=== PATIENT | male | born 1955 | race Caucasian/White ===

== ENCOUNTER 2020-04-12 12:01 | Emergency (ER) | payer OTHER, MEDICARE, SELFPAY ==
[2020-04-12 12:09] VITALS: BP 158/123; PULSE 98; RESP 16; TEMP 36.3; O2SAT 93; BMI 27.2
[2020-04-12 12:12] VITALS: BP 145/82; PULSE 65; RESP 14; TEMP 36.6; O2SAT 94
[2020-04-12] MEDS: lidocaine 1% INJ 20 mL INJECTION (12:29)
--- NOTE | 2020-04-12 13:21 | ED_ITS ---
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 He reports cut his left thumb with a Lisa. Exposure to raw meat. Onset (ago): hour(s) (1-2) Place: home Patient tetanus UTD: Yes Context: accidental Associated symptoms: Reports no associated symptoms; Denies chills, fever(s), nausea or vomiting Treatments prior to arrival: bandage Review of Systems General: Reports: 10 or more systems reviewed and unremarkable except in HPI and below Const: Denies: fever(s), chills or diaphoresis Eyes: Denies: blurry vision or eye redness ENMT: Denies: throat pain, dental pain or disequilibrium Card: Denies: chest pain, palpitations or irregular heart rhythm Resp: Denies: dyspnea, productive cough, non-productive cough or wheezing GI: Denies: abdominal pain, nausea or vomiting : Denies: dysuria Musc: Denies: back pain Skin/Breast: Reports: skin tenderness and other (laceration); Denies: rash or pruritus Neuro: Denies: headache(s), weakness in extremities or behavioral changes Psych: Denies: anxiety or depression Jon/Lymph: Denies: easy bruising PFSH ED PFSH: Medical History ASHD (arteriosclerotic heart disease) Atrial fibrillation Diabetes 1.5, managed as type 2 GERD (gastroesophageal reflux disease) HTN (hypertension) Hyperlipidemia COREY (obstructive sleep apnea) Family History Mother Diabetes Hypertension Mother CAD (coronary artery disease) Father CAD (coronary artery disease) Social History Smoking and tobacco status: former smoker Alcohol intake: current Alcohol type: wine Household members: spouse Marital status: Physical Exam Const: COMMON NORMALS: no acute distress, patient oriented x3, healthy appearing and alert GENERAL APPEARANCE: cooperative, comfortable and well hydrated HENMT: COMMON NORMALS: normocephalic, Normal external nose present and moist oral mucous membranes HEAD & SCALP: normocephalic NOSE: Normal external nose present Eye: COMMON NORMALS: Equal, round and reactive pupils present and EOMs intact bilaterally GENERAL EYE: appearance normal, both eyes and all related structures PUPIL: Yes Equal, round and reactive pupils present Neck/C-Spine: COMMON NORMALS: full ROM and no lymphadenopathy GENERAL: Yes normal visual inspection and Yes trachea midline CERVICAL SPINE: Yes cervical ROM normal Lymph: LYMPHATIC: no lymphadenopathy noted Chest: COMMONS NORMALS: normal inspection of the chest Resp: COMMON NORMALS: normal respiratory effort and clear to auscultation bilaterally AUSCULTATION: clear to auscultation bilaterally Cardio: COMMON NORMALS: regular rhythm, S1 normal heart sound present and S2 normal heart sound present RHYTHM: regular rhythm HEART SOUNDS: S1 normal heart sound present and S2 normal heart sound present GI: COMMON NORMALS: Soft to palpation and non-tender INSPECTION: Yes normal to inspection PALPATION: Yes Soft to palpation : COMMON NORMALS: Yes no CVA tenderness BLADDER/KIDNEY EXAM: Yes no CVA tenderness Back/Pelvis: COMMON NORMALS: no CVA tenderness and thoracic and lumbar spine normal to inspection Extremity: COMMON NORMALS: normal to inspection and capillary refill normal Neuro: COMMON NORMALS: patient oriented x3 and no focal motor deficits SENSORIUM/ORIENTATION: Yes alert Psych: COMMON NORMALS: mental status grossly normal, Normal thought process present and cooperative ACTIVITY/MOTOR BEHAVIOR: Yes appropriate eye contact THOUGHT PROCESS: Normal thought process present Skin: COMMON NORMALS: no rashes or lesions noted and turgor normal GENERAL SKIN EXAM: no rashes or lesions noted and turgor normal LESIONS: no lesions RASHES: no rashes TRAUMA: laceration (3.0 cm linear, radial side thumb, 2nd PIP, tendon function intact) linear, actively bleeding, involves subcutaneous tissue, involves muscle tissue, motor nerve function intact and sensation intact; no foreign bodies present Procedures Laceration Laceration 1: Site: hand (left thumb) Side (If applicable): left Size (cm): 3.0 Description: linear and clean Depth: involves muscle layer Local Anesthetic: lidocaine 1% Amount of anesthesia used (mL): 5 Pre-repair: wound explored, irrigated extensively and deep structures in tact Skin layer closed with: nylon Size (cm): 5-0 Number of sutures: 6 Technique: simple, interrupted Course Vital Signs: Vital signs: Vital Signs Temperature 97.9 F 04/12/20 12:12 Pulse Rate 65 04/12/20 12:12 Respiratory Rate 14 04/12/20 12:12 Blood Pressure 145/82 04/12/20 12:12 Pulse Oximetry 94 04/12/20 12:12 Discharge Plan Discharge Patient Disposition: Home Clinical Impression: Laceration Condition: Stable Prescriptions: New Augmentin 875-125 mg tablet 1 tab PO BID Qty: 14 RF: 0 No Action potassium chloride [Klor-Con M20] 20 mEq tablet,ER particles/crystals 20 meq PO DAILY RF: 0 atorvastatin 80 mg tablet 80 mg PO DAILY RF: 0 aspirin [Aspir-81] 81 mg tablet,delayed release (DR/EC) 81 mg PO DAILY RF: 0 furosemide 40 mg tablet 40 mg PO DAILY RF: 0 duloxetine 60 mg capsule, delayed rel sprinkle 60 mg PO DAILY RF: 0 nitroglycerin [Nitrostat] 0.4 mg tablet, sublingual 0.4 mg SUBLINGUAL Q5M PRNRF: 0 tamsulosin [Flomax] 0.4 mg capsule 0.8 mg PO DAILY RF: 0 lorazepam [Ativan] 0.5 mg tablet 0.5 mg PO TID PRNRF: 0 trazodone 50 mg tablet 50 mg PO DAILY RF: 0 pantoprazole 40 mg tablet,delayed release (DR/EC) 40 mg PO DAILY RF: 0 metformin 500 mg tablet 1,000 mg PO BID RF: 0 allopurinol 300 mg tablet 300 mg PO DAILY RF: 0 cyclobenzaprine 10 mg tablet 10 mg PO TID PRN (Reason: muscle spasm) RF: 0 losartan 100 mg tablet 100 mg PO DAILY RF: 0 empagliflozin 25 mg tablet 25 mg PO DAILY RF: 0 Discharge Orders: Discharge ED (Routine); Ordered 04/12/20 Ordered By: Kelley Ramon Referrals: Abram Thomas MD [Primary Care Provider] - Discharge Diet: Usual diet Discharge Activity: Limit activity as instructed Patient Instructions: Suture Care (ED), Laceration (ED) Activity Restrictions/Additional Instructions: Monitor for signs and symptoms of infection, follow-up with your primary care provider or return the emergency department if redness swelling or increased pain occurs to the site. Sutures out in 7 days. Keep covered if contamination is possible such as with dirt or products that can cause infection. May wash with soap and water as needed, do not submerge in water and pat dry Coding Level of Care Code ED Field Radio Technician for Chg Fwd Exam Comprehensive
== END 2020-04-12 13:34 | disposition home or self-care (01) ==
PROVIDERS: Emergency Provider Nurse Practitioner Family; PCP Internal Medicine
DX: S61.012A Laceration without foreign body of left thumb without damage to nail, initial encounter (principal); I48.91 Unspecified atrial fibrillation; E13.9 Other specified diabetes mellitus without complications; I10 Essential (primary) hypertension; E78.5 Hyperlipidemia, unspecified; Z87.891 Personal history of nicotine dependence; Z79.82 Long term (current) use of aspirin; Z79.84 Long term (current) use of oral hypoglycemic drugs; W26.0XXA Contact with knife, initial encounter
CPT/HCPCS: 12001; 12002; 12345; 99281; 99282

== ENCOUNTER 2020-05-06 14:41 | Emergency (ER) | payer OTHER, MEDICARE, SELFPAY ==
[2020-05-06 14:46] VITALS: BP 148/98; PULSE 71; RESP 18; TEMP 36.8; O2SAT 95; BMI 28.5
--- NOTE | 2020-05-06 15:08 | XRR_ITS ---
PROCEDURE INFORMATION: Exam: XR Chest, 1 View Exam date and time: 05/06/2020 3:16 PM Age: 65 years old Clinical indication: Shortness of breath; Chest pain; Type not specified; Prior surgery; Surgery type: Open heart; Additional info: Cp TECHNIQUE: Imaging protocol: XR of the chest Views: 1 view. COMPARISON: No relevant prior studies available. FINDINGS: Lungs: Unremarkable. No consolidation. Pleural space: Unremarkable. No pleural effusion. No pneumothorax. Heart/Mediastinum: Unremarkable. No cardiomegaly. Bones/joints: Metallic sternotomy wires are in place. XR/XR chest 1V portable [id number] IMPRESSION: No acute findings. Metallic sternotomy wires are in place.
--- NOTE | 2020-05-06 15:08 | ECG_ITS ---
[facility] Test Date: 2020-05-06 Pat Name: Fuentes Gambino Department: Room: Gender: Male Rate Reviewer: : 1955 Requested By: Sha Martinez Order Number: [id number] Damaris MD: Kay Brunson M.D. Measurements Intervals [place] Rate: 74 P: -23 RI: 200 QRS: 17 QRSD: 88 T: -12 QT: 360 QTc: 400 Interpretive Statements SINUS RHYTHM WITH OCCASIONAL VENTRICULAR PREMATURE COMPLEXES NONSPECIFIC T-WAVE ABNORMALITY WARNING: DATA QUALITY MAY AFFECT INTERPRETATION No previous ECG available for comparison Electronically Signed On 05-06-2020 19:57:51 BELT CLEANER by Kay Brunson M.D. [id number]
[2020-05-06 15:39] VITALS: BP 147/100; PULSE 74; RESP 18; O2SAT 95
--- NOTE | 2020-05-06 15:40 | W.ED.CHESTPA ---
Documented by User: MIKAL Thomas 05/07/20 07:04 HPI - Chest Pain General: Chief Complaint: Chest Pain Stated Complaint: CP, SOB, REPORTED FEVER Time Seen by Provider: 05/06/20 15:36 History of Present Illness: HPI narrative: Patient is a 65-year-old male who comes to the ED with chest pain. Past medical history of hypertension, type 2 diabetes, hyperlipidemia, COPD. Chest pain started 4 days ago. He describes the pain as a tightness and aching feeling. He rates the pain currently a 5 out of 10. Pain is located in the center of the chest. Chest pain is worse when laying down at night. Denies worsening chest pain when up and active. Denies any burning pain in chest, epigastric pain or acid reflux. He took some Tylenol today to help with chest pain and states he does not want any narcotics while in the ED. Associated symptoms: Reports dyspnea (Chest tightness); Deny abdominal pain, fever(s), nausea, palpitations or vomiting Review of Systems Const: Denies: fever(s), chills or fatigue Eyes: Denies: change in vision or eye discomfort ENMT: Denies: throat pain, odynophagia, nasal discharge or nasal congestion Card: Reports: chest pain; Denies: palpitations, edema, swelling of feet/ankles, dyspnea on exertion or orthopnea Resp: Reports: dyspnea (Chest tightness); Denies: productive cough or non-productive cough GI: Denies: abdominal pain, nausea, vomiting, diarrhea, constipation or hematochezia : Denies: flank pain, difficulty urinating, dysuria or hematuria Musc: Denies: neck pain, back pain or extremity swelling Skin/Breast: Denies: rash or new lesions Neuro: Denies: headache(s), numbness in extremities or weakness in extremities PFS ED PFSH: Medical History ASHD (arteriosclerotic heart disease) Atrial fibrillation Diabetes 1.5, managed as type 2 GERD (gastroesophageal reflux disease) HTN (hypertension) Hyperlipidemia COREY (obstructive sleep apnea) Family History Mother Diabetes Hypertension Mother CAD (coronary artery disease) Father CAD (coronary artery disease) Social History Smoking and tobacco status: former smoker Alcohol intake: current Alcohol type: wine Household members: spouse Marital status: Physical Exam Const: COMMON NORMALS: no acute distress, patient oriented x3, healthy appearing and alert GENERAL APPEARANCE: cooperative and comfortable HENMT: COMMON NORMALS: normocephalic HEAD & SCALP: normocephalic MOUTH: Normal oral and palatal mucosa present THROAT: posterior oropharynx normal and uvula midline Eye: COMMON NORMALS: Equal, round and reactive pupils present PUPIL: Yes Equal, round and reactive pupils present Neck/C-Spine: COMMON NORMALS: supple GENERAL: Yes normal visual inspection Resp: COMMON NORMALS: normal respiratory effort, No retractions, No use of accessory muscles and clear to auscultation bilaterally EFFORT & INSPECTION: Yes able to speak in complete sentences, No tachypneic, No respiratory distress and No labored AUSCULTATION: clear to auscultation bilaterally Cardio: COMMON NORMALS: regular rate, regular rhythm, S1 normal heart sound present, S2 normal heart sound present, No gallops present (Cardio), No clicks present (Cardio), No murmurs present (Cardio) and Peripheral pulses 2+ throughout RATE: regular rate RHYTHM: regular rhythm HEART SOUNDS: S1 normal heart sound present and S2 normal heart sound present PERIPHERAL PULSES: Peripheral pulses 2+ throughout GI: COMMON NORMALS: Normal to inspection, nondistended, normoactive bowel sounds present, Soft to palpation, non-tender and no masses PALPATION: Yes Soft to palpation : COMMON NORMALS: Yes no CVA tenderness BLADDER/KIDNEY EXAM: Yes no CVA tenderness Back/Pelvis: COMMON NORMALS: no CVA tenderness Extremity: COMMON NORMALS: normal to inspection and no pedal edema Neuro: COMMON NORMALS: patient oriented x3 and moves all extremities SENSORIUM/ORIENTATION: Yes alert Skin: GENERAL SKIN EXAM: dry skin Course Vital Signs: Vital signs: Vital Signs Temperature 98.3 F 05/06/20 14:46 Pulse Rate 82 05/06/20 18:18 Respiratory Rate 16 05/06/20 18:18 Blood Pressure 155/104 05/06/20 18:18 Pulse Oximetry 95 05/06/20 18:18 MDM - Chest Pain Lab Data: Attestation: I reviewed the patient's lab results. Labs: Lab Results 05/06/20 05/06/2021 Range/Units 15:45 15:45 15:45 WBC 4.7 (4.0-10.0) 10^3/ uL RBC 4.85 (4.1-5.3) 10^6/u L Hgb 15.3 (11.7-16.6) g/dL Hct 46.1 (42.0-52.0) % MCV 95.1 H (80-94) fL MCH 31.5 (28.0-34.0) pg MCHC 33.2 (30.0-36.0) g/dL RDW 13.3 (12.1-15.1) % Plt Count 121 L (130-400) 10^3/c mm MPV 10.7 H (7.4-10.4) fL Neut % (Auto) 65.0 % Lymph % (Auto) 16.9 % Buchanan % (Auto) 16.2 % Eos % (Auto) 1.1 % Baso % (Auto) 0.4 % Neut # (Auto) 3.04 (1.8-7.7) 10^3/u L Lymph # (Auto) 0.8 (0.8-4.8) 10^3/u L Buchanan # (Auto) 0.8 (0.2-0.9) 10^3/u L Eos # (Auto) 0.1 (0.0-0.8) 10^3/u L Baso # (Auto) 0.0 (0.0-0.1) 10^3/u L Nucleated RBC % (a uto) 0 % Nucleated RBCs # 0.0 /100WBC PT 13.80 (12.1-14.9) SECO NDS INR 1.03 (0.8-1.2) D-Dimer 1.11 H (0-0.59) ug/mIFE U Sodium 138 (136-145) mmol/L Potassium 3.9 (3.5-5.1) mmol/L Chloride 100 (98-107) mmol/L Carbon Dioxide 25 (22-29) mmol/L Anion Gap 16.9 (5-19) BUN 12 (8-23) mg/dL Creatinine 1.0 (0.7-1.2) mg/dL GFR Calculation 74.5 L (90-130) mL/min Glucose 134 H (65-115) mg/dL Calculated Osmolal ity 288 (285-295) mOsm/k g Calcium 9.1 (8.5-10.5) mg/dL Total Bilirubin 1.0 (0.15-1.2) mg/dL AST 12 (0-40) U/L ALT 14 (0-41) U/L Alkaline Phosphata se 127 (40-130) IU/L Creatine Kinase 31 L (39-308) U/L Troponin T Baselin e (0-15) ng/L Troponin T 120 Min venet[place] (0-15) ng/L Delta Troponin T (0-10) ABS# NT-Pro-B Natriuret Pep 1431 H (0-125) pg/mL Total Protein 6.6 (6.6-8.7) g/dL Albumin 4.1 (3.5-5.2) g/dL Globulin 2.5 (1.3-4.6) g/dL Urine Color (Yellow) Urine Appearance (CLEAR) Urine pH (5-7) Ur Specific Gravit y (1.005-1.030) Urine Protein (Negative) Urine Glucose (UA) (Normal) Urine Ketones (Negative) Urine Blood (Negative) Urine Nitrate (Negative) Urine Bilirubin (Negative) Urine Urobilinogen (Negative) mg/dL Ur Leukocyte Hetal ase (Negative) 05/06/20 05/06/20 05/06/20 Range/Units 15:45 17:12 18:01 WBC (4.0-10.0) 10^3/ uL RBC (4.1-5.3) 10^6/u L Hgb (11.7-16.6) g/dL Hct (42.0-52.0) % MCV (80-94) fL MCH (28.0-34.0) pg MCHC (30.0-36.0) g/dL RDW (12.1-15.1) % Plt Count (130-400) 10^3/c mm MPV (7.4-10.4) fL Neut % (Auto) % Lymph % (Auto) % Buchanan % (Auto) % Eos % (Auto) % Baso % (Auto) % Neut # (Auto) (1.8-7.7) 10^3/u L Lymph # (Auto) (0.8-4.8) 10^3/u L Buchanan # (Auto) (0.2-0.9) 10^3/u L Eos # (Auto) (0.0-0.8) 10^3/u L Baso # (Auto) (0.0-0.1) 10^3/u L Nucleated RBC % (a uto) % Nucleated RBCs # /100WBC PT (12.1-14.9) SECO NDS INR (0.8-1.2) D-Dimer (0-0.59) ug/mIFE U Sodium (136-145) mmol/L Potassium (3.5-5.1) mmol/L Chloride (98-107) mmol/L Carbon Dioxide (22-29) mmol/L Anion Gap (5-19) BUN (8-23) mg/dL Creatinine (0.7-1.2) mg/dL GFR Calculation (90-130) mL/min Glucose (65-115) mg/dL Calculated Osmolal ity (285-295) mOsm/k g Calcium (8.5-10.5) mg/dL Total Bilirubin (0.15-1.2) mg/dL AST (0-40) U/L ALT (0-41) U/L Alkaline Phosphata se (40-130) IU/L Creatine Kinase (39-308) U/L Troponin T Baselin e 15 (0-15) ng/L Troponin T 120 Min venetie 14.38 (0-15) ng/L Delta Troponin T -0.62 L (0-10) ABS# NT-Pro-B Natriuret Pep (0-125) pg/mL Total Protein (6.6-8.7) g/dL Albumin (3.5-5.2) g/dL Globulin (1.3-4.6) g/dL Urine Color Yellow (Yellow) Urine Appearance Clear (CLEAR) Urine pH 5 (5-7) Ur Specific Gravit y 1.010 (1.005-1.030) Urine Protein Neg (Negative) Urine Glucose (UA) Norm (Normal) Urine Ketones Negative (Negative) Urine Blood Neg (Negative) Urine Nitrate Negative (Negative) Urine Bilirubin Neg (Negative) Urine Urobilinogen Norm (Negative) mg/dL Ur Leukocyte Hetal ase Negative (Negative) Imaging Data^: CXR: Attestation: I personally reviewed and interpreted this imaging study as follows: Radiologist's impression: [address] [address] XRay Report Signed Patient: Fuentes Gambino Unit #: [id number] : 1955 Age/Sex: 65 / M ADM Date: 05/06/20 Loc: ER Room/Bed: Attending Dr: Ordering Provider/Ordering MD: Sha Martinez MD Date of Service: 05/06/20 Procedure(s): XR chest 1V portable [id number] Accession Number(s): [id number] Report Number: [id number] PROCEDURE INFORMATION: Exam: XR Chest, 1 View Exam date and time: 05/06/2020 3:16 PM Age: 65 years old Clinical indication: Shortness of breath; Chest pain; Type not specified; Prior surgery; Surgery type: Open heart; Additional info: Cp TECHNIQUE: Imaging protocol: XR of the chest Views: 1 view. COMPARISON: No relevant prior studies available. FINDINGS: Lungs: Unremarkable. No consolidation. Pleural space: Unremarkable. No pleural effusion. No pneumothorax. Heart/Mediastinum: Unremarkable. No cardiomegaly. Bones/joints: Metallic sternotomy wires are in place. XR/XR chest 1V portable [id number] IMPRESSION: No acute findings. Metallic sternotomy wires are in place. Dictated By: Aric Edward Signed By: Aric Edward Signed Date/Time: 05/06/201616 DD/ 14 Discharge Plan Discharge Patient Disposition: Home Clinical Impression: Esophagitis Condition: Stable Prescriptions: New Carafate 1 gram tablet 1 g PO Q6H 28 Days Qty: 112 RF: 0 No Action potassium chloride [Klor-Con M20] 20 mEq tablet,ER particles/crystals 20 meq PO DAILY RF: 0 atorvastatin 80 mg tablet 80 mg PO DAILY RF: 0 aspirin [Aspir-81] 81 mg tablet,delayed release (DR/EC) 81 mg PO DAILY RF: 0 furosemide 40 mg tablet 40 mg PO DAILY RF: 0 duloxetine 60 mg capsule, delayed rel sprinkle 60 mg PO DAILY RF: 0 nitroglycerin [Nitrostat] 0.4 mg tablet, sublingual 0.4 mg SUBLINGUAL Q5M PRNRF: 0 tamsulosin [Flomax] 0.4 mg capsule 0.8 mg PO DAILY RF: 0 lorazepam [Ativan] 0.5 mg tablet 0.5 mg PO TID PRNRF: 0 trazodone 50 mg tablet 50 mg PO DAILY RF: 0 pantoprazole 40 mg tablet,delayed release (DR/EC) 40 mg PO DAILY RF: 0 metformin 500 mg tablet 1,000 mg PO BID RF: 0 allopurinol 300 mg tablet 300 mg PO DAILY RF: 0 cyclobenzaprine 10 mg tablet 10 mg PO TID PRN (Reason: muscle spasm) RF: 0 losartan 100 mg tablet 100 mg PO DAILY RF: 0 empagliflozin 25 mg tablet 25 mg PO DAILY RF: 0 Augmentin 875-125 mg tablet 1 tab PO BID Qty: 14 RF: 0 Discharge Orders: Discharge ED (Routine); Ordered 05/06/20 Ordered By: Dat Wyman Referrals: [facility] [Primary Care Provider] - Discharge Diet: Usual diet Discharge Activity: Increase activity as tolerated Patient Instructions: Corrosive Esophagitis (ED) Activity Restrictions/Additional Instructions: Drink plenty of water with medication. Follow-up with primary care for further evaluation and treatment. You may need to have a upper endoscopy, EGD, for further evaluation of the esophagus irritation. Avoid carbonated beverages, avoid really acidic or spicy foods, and avoid eating 2 hours prior to bedtime. Return to the emergency room for worsening symptoms or new concerns. Coding Level of Care Code ED [employer] Architect for Chg Fwd Exam Comprehensive Documented by User: ASUNCION Friedman 05/06/20 18:27 HPI - Chest Pain General: Chief Complaint: Chest Pain Stated Complaint: CP, SOB, REPORTED FEVER Time Seen by Provider: 05/06/20 15:36 PFSH ED PFSH: Medical History ASHD (arteriosclerotic heart disease) Atrial fibrillation Diabetes 1.5, managed as type 2 GERD (gastroesophageal reflux disease) HTN (hypertension) Hyperlipidemia COREY (obstructive sleep apnea) Family History Mother Diabetes Hypertension Mother CAD (coronary artery disease) Father CAD (coronary artery disease) Social History Smoking and tobacco status: former smoker Alcohol intake: current Alcohol type: wine Household members: spouse Marital status: Course ED course: 1700, received patient from MIKAL Chavez?C, we are awaiting CTA for elevated D-dimer to further diagnose and explain central chest discomfort. Patient reported to Mr. Giraldo that he has had central chest pain increased when he lays down at night. Patient reports a history of COPD, diabetes, hypertension and hyperlipidemia. Review of labs at this time notes a BNP of 1400, D-dimer at 1.1, troponin at less than 0.15. Vital Signs: Vital signs: Vital Signs Temperature 98.3 F 05/06/20 14:46 Pulse Rate 82 05/06/20 18:18 Respiratory Rate 16 05/06/20 18:18 Blood Pressure 155/104 05/06/20 18:18 Pulse Oximetry 95 05/06/20 18:18 MDM - Chest Pain MDM Narrative: Medical decision making narrative: Patient comes in today for complaints of midsternal chest discomfort when lying down at night. Patient appears well. Vital signs were normal. Skin was warm and dry. Differential diagnosis includes ACS, PE, GERD, esophagitis, cholecystitis. Laboratory values noted no significant abnormality in the CBC and CMP. D-dimer was slightly elevated. Troponin was unremarkable. Chest x-ray was normal. CTA noted no pulmonary embolism, did note some gallstones, and noted some esophagitis. Believe the patient probably has esophagitis probably secondary to GERD. Patient was given a GI cocktail in the ER and started on Carafate. Patient at this time takes pantoprazole and famotidine routinely. Recommended follow-up with primary care for referral to endoscopy for an EGD. Patient reported understanding of care plan and need for follow-up. Lab Data: Labs: Lab Results 05/06/20 05/06/20 05/06/20 Range/Units 15:45 15:45 15:45 WBC 4.7 (4.0-10.0) 10^3/ uL RBC 4.85 (4.1-5.3) 10^6/u L Hgb 15.3 (11.7-16.6) g/dL Hct 46.1 (42.0-52.0) % MCV 95.1 H (80-94) fL MCH 31.5 (28.0-34.0) pg MCHC 33.2 (30.0-36.0) g/dL RDW 13.3 (12.1-15.1) % Plt Count 121 L (130-400) 10^3/c mm MPV 10.7 H (7.4-10.4) fL Neut % (Auto) 65.0 % Lymph % (Auto) 16.9 % Buchanan % (Auto) 16.2 % Eos % (Auto) 1.1 % Baso % (Auto) 0.4 % Neut # (Auto) 3.04 (1.8-7.7) 10^3/u L Lymph # (Auto) 0.8 (0.8-4.8) 10^3/u L Buchanan # (Auto) 0.8 (0.2-0.9) 10^3/u L Eos # (Auto) 0.1 (0.0-0.8) 10^3/u L Baso # (Auto) 0.0 (0.0-0.1) 10^3/u L Nucleated RBC % (a uto) 0 % Nucleated RBCs # 0.0 /100WBC PT 13.80 (12.1-14.9) SECO NDS INR 1.03 (0.8-1.2) D-Dimer 1.11 H (0-0.59) ug/mIFE U Sodium 138 (136-145) mmol/L Potassium 3.9 (3.5-5.1) mmol/L Chloride 100 (98-107) mmol/L Carbon Dioxide 25 (22-29) mmol/L Anion Gap 16.9 (5-19) BUN 12 (8-23) mg/dL Creatinine 1.0 (0.7-1.2) mg/dL GFR Calculation 74.5 L (90-130) mL/min Glucose 134 H (65-115) mg/dL Calculated Osmolal ity 288 (285-295) mOsm/k g Calcium 9.1 (8.5-10.5) mg/dL Total Bilirubin 1.0 (0.15-1.2) mg/dL AST 12 (0-40) U/L ALT 14 (0-41) U/L Alkaline Phosphata se 127 (40-130) IU/L Creatine Kinase 31 L (39-308) U/L Troponin T Baselin e (0-15) ng/L Troponin T 120 Min venet[place] (0-15) ng/L Delta Troponin T (0-10) ABS# NT-Pro-B Natriuret Pep 1431 H (0-125) pg/mL Total Protein 6.6 (6.6-8.7) g/dL Albumin 4.1 (3.5-5.2) g/dL Globulin 2.5 (1.3-4.6) g/dL Urine Color (Yellow) Urine Appearance (CLEAR) Urine pH (5-7) Ur Specific Gravit y (1.005-1.030) Urine Protein (Negative) Urine Glucose (UA) (Normal) Urine Ketones (Negative) Urine Blood (Negative) Urine Nitrate (Negative) Urine Bilirubin (Negative) Urine Urobilinogen (Negative) mg/dL Ur Leukocyte Hetal ase (Negative) 05/06/20 05/06/20 05/06/20 Range/Units 15:45 17:12 18:01 WBC (4.0-10.0) 10^3/ uL RBC (4.1-5.3) 10^6/u L Hgb (11.7-16.6) g/dL Hct (42.0-52.0) % MCV (80-94) fL MCH (28.0-34.0) pg MCHC (30.0-36.0) g/dL RDW (12.1-15.1) % Plt Count (130-400) 10^3/c mm MPV (7.4-10.4) fL Neut % (Auto) % Lymph % (Auto) % Buchanan % (Auto) % Eos % (Auto) % Baso % (Auto) % Neut # (Auto) (1.8-7.7) 10^3/u L Lymph # (Auto) (0.8-4.8) 10^3/u L Buchanan # (Auto) (0.2-0.9) 10^3/u L Eos # (Auto) (0.0-0.8) 10^3/u L Baso # (Auto) (0.0-0.1) 10^3/u L Nucleated RBC % (a uto) % Nucleated RBCs # /100WBC PT (12.1-14.9) SECO NDS INR (0.8-1.2) D-Dimer (0-0.59) ug/mIFE U Sodium (136-145) mmol/L Potassium (3.5-5.1) mmol/L Chloride (98-107) mmol/L Carbon Dioxide (22-29) mmol/L Anion Gap (5-19) BUN (8-23) mg/dL Creatinine (0.7-1.2) mg/dL GFR Calculation (90-130) mL/min Glucose (65-115) mg/dL Calculated Osmolal ity (285-295) mOsm/k g Calcium (8.5-10.5) mg/dL Total Bilirubin (0.15-1.2) mg/dL AST (0-40) U/L ALT (0-41) U/L Alkaline Phosphata se (40-130) IU/L Creatine Kinase (39-308) U/L Troponin T Baselin e 15 (0-15) ng/L Troponin T 120 Min venetie 14.38 (0-15) ng/L Delta Troponin T -0.62 L (0-10) ABS# NT-Pro-B Natriuret Pep (0-125) pg/mL Total Protein (6.6-8.7) g/dL Albumin (3.5-5.2) g/dL Globulin (1.3-4.6) g/dL Urine Color Yellow (Yellow) Urine Appearance Clear (CLEAR) Urine pH 5 (5-7) Ur Specific Gravit y 1.010 (1.005-1.030) Urine Protein Neg (Negative) Urine Glucose (UA) Norm (Normal) Urine Ketones Negative (Negative) Urine Blood Neg (Negative) Urine Nitrate Negative (Negative) Urine Bilirubin Neg (Negative) Urine Urobilinogen Norm (Negative) mg/dL Ur Leukocyte Hetal ase Negative (Negative) Discharge Plan Discharge Patient Disposition: Home Clinical Impression: Esophagitis Condition: Stable Prescriptions: New Carafate 1 gram tablet 1 g PO Q6H 28 Days Qty: 112 RF: 0 No Action potassium chloride [Klor-Con M20] 20 mEq tablet,ER particles/crystals 20 meq PO DAILY RF: 0 atorvastatin 80 mg tablet 80 mg PO DAILY RF: 0 aspirin [Aspir-81] 81 mg tablet,delayed release (DR/EC) 81 mg PO DAILY RF: 0 furosemide 40 mg tablet 40 mg PO DAILY RF: 0 duloxetine 60 mg capsule, delayed rel sprinkle 60 mg PO DAILY RF: 0 nitroglycerin [Nitrostat] 0.4 mg tablet, sublingual 0.4 mg SUBLINGUAL Q5M PRNRF: 0 tamsulosin [Flomax] 0.4 mg capsule 0.8 mg PO DAILY RF: 0 lorazepam [Ativan] 0.5 mg tablet 0.5 mg PO TID PRNRF: 0 trazodone 50 mg tablet 50 mg PO DAILY RF: 0 pantoprazole 40 mg tablet,delayed release (DR/EC) 40 mg PO DAILY RF: 0 metformin 500 mg tablet 1,000 mg PO BID RF: 0 allopurinol 300 mg tablet 300 mg PO DAILY RF: 0 cyclobenzaprine 10 mg tablet 10 mg PO TID PRN (Reason: muscle spasm) RF: 0 losartan 100 mg tablet 100 mg PO DAILY RF: 0 empagliflozin 25 mg tablet 25 mg PO DAILY RF: 0 Augmentin 875-125 mg tablet 1 tab PO BID Qty: 14 RF: 0 Discharge Orders: Discharge ED (Routine); Ordered 05/06/20 Ordered By: Dat Wyman Referrals: [facility] [Primary Care Provider] - Discharge Diet: Usual diet Discharge Activity: Increase activity as tolerated Patient Instructions: Corrosive Esophagitis (ED) Activity Restrictions/Additional Instructions: Drink plenty of water with medication. Follow-up with primary care for further evaluation and treatment. You may need to have a upper endoscopy, EGD, for further evaluation of the esophagus irritation. Avoid carbonated beverages, avoid really acidic or spicy foods, and avoid eating 2 hours prior to bedtime. Return to the emergency room for worsening symptoms or new concerns. Coding Level of Care Code ED [employer] So[employer] Architect for [place]twan Fwd Exam Comprehensive
[2020-05-06 16:03] LABS: Basophils % 0.4 %; Eosinophils # 0.1 10^3/uL (0.0-0.8); Eosinophils % 1.1 %; Hematocrit 46.1 % (42.0-52.0); Hemoglobin 15.3 g/dL (11.7-16.6); Lymphocytes # 0.8 10^3/uL (0.8-4.8); Lymphocytes % 16.9 %; Mean Corpuscular HGB Conc 33.2 g/dL (30.0-36.0); Mean Corpuscular Hemoglobin 31.5 pg (28.0-34.0); Mean Corpuscular Volume 95.1 fL (80-94); Mean Platelet Volume 10.7 fL (7.4-10.4); Monocytes # 0.8 10^3/uL (0.2-0.9); Monocytes % 16.2 %; Neutrophils # 3.04 10^3/uL (1.8-7.7); Nucleated Red Blood Cells % 0 %; Platelet Count 121 10^3/cmm (130-400); Red Blood Count 4.85 10^6/uL (4.1-5.3); Red Cell Distribution Width 13.3 % (12.1-15.1); White Blood Count 4.7 10^3/uL (4.0-10.0)
[2020-05-06 16:18] VITALS: BP 137/90; PULSE 72; RESP 15; O2SAT 93
[2020-05-06 16:23] LABS: INR 1.03 (0.8-1.2)
[2020-05-06 16:26] LABS: D Dimer 1.11 ug/mIFEU (0-0.59)
[2020-05-06 16:37] LABS: Troponin(5th) Baseline 15 ng/L (0-15)
[2020-05-06 16:47] VITALS: BP 148/95; PULSE 75; RESP 14; O2SAT 94
[2020-05-06 16:47] LABS: Alanine Aminotransferase 14 U/L (0-41); Albumin Level 4.1 g/dL (3.5-5.2); Alkaline Phosphatase 127 IU/L (40-130); Anion Gap 16.9 (5-19); Aspartate Amino Transferase 12 U/L (0-40); Blood Urea Nitrogen 12 mg/dL (8-23); Calcium 9.1 mg/dL (8.5-10.5); Carbon Dioxide 25 mmol/L (22-29); Chloride 100 mmol/L (98-107); Creatine Phosphokinase 31 U/L (39-308); Globulin 2.5 g/dL (1.3-4.6); Glomerular Filtration Rate 74.5 mL/min (90-130); Glucose 134 mg/dL (65-115); NT Pro B Type Natriuretic Pept 1431 pg/mL (0-125); Osmolality Calculated 288 mOsm/kg (285-295); Potassium 3.9 mmol/L (3.5-5.1); Sodium 138 mmol/L (136-145); Total Protein 6.6 g/dL (6.6-8.7)
--- NOTE | 2020-05-06 16:58 | CTR_ITS ---
PROCEDURE INFORMATION: Exam: CT Angiography Chest With Contrast Exam date and time: 05/06/2020 5:19 PM Age: 65 years old Clinical indication: Pain; Shortness of breath; Chest pressure; Prior surgery; Surgery type: Bypass; Additional info: Cp with elevated d dimer TECHNIQUE: Imaging protocol: Computed tomographic angiography of the chest with intravenous contrast. 3D rendering (Not supervised by radiologist): MIP and/or 3D reconstructed images were created by the technologist. Radiation optimization: All CT scans at this facility use at least one of these dose optimization techniques: automated exposure control; mA and/or kV adjustment per patient size (includes targeted exams where dose is matched to clinical indication); or iterative reconstruction. Contrast material: OMNI 350; Contrast volume: 83 ml; Contrast route: INTRAVENOUS (IV); COMPARISON: CR XR chest 1V portable [id number] 05/06/2020 3:47 PM RADIATION DOSE METRICS: Total DLP (mGy-cm): 575.89 FINDINGS: Tubes, catheters and devices: There is a lap band device in place on the stomach in appropriate position. Pulmonary arteries: There is no evidence of filling defects within the pulmonary arterial circulation to suggest pulmonary embolism. Aorta: Atherosclerotic changes are seen in the aortic arch without evidence of aneurysm. Lungs: There is some partial atelectasis at the lung bases. Pleural space: Unremarkable. No pneumothorax. No pleural effusion. Heart: Sternotomy wires and mediastinal surgical clips are present, consistent with previous coronary arterial bypass grafting. Mediastinal space: There is a small hiatal hernia. There is mild thickening of the distal esophagus which could represent some esophagitis. Lymph nodes: Unremarkable. No enlarged lymph nodes. Liver: There is a simple hepatic cyst. Gallbladder and bile ducts: Multiple calcified gallstones are present. Adrenals: The adrenal glands are normal. Bones/joints: There is degenerative change throughout the thoracic spine. No acute fracture. Soft tissues: Unremarkable. CT/CT angio chest PE protcl [id number] IMPRESSION: 1. No evidence of pulmonary embolism. 2. Cholelithiasis. 3. Hiatus hernia and thickening of the distal esophagus suggesting some esophagitis. Radiation Dose CTDIVOL = (mGy): DLP = 575.89 (mGy-cm)
[2020-05-06] MEDS: iohexol 350 mg/mL 100 mL Btl IV (17:34)
[2020-05-06 17:47] VITALS: BP 151/95; PULSE 72; RESP 11; O2SAT 95
[2020-05-06 17:58] LABS: Add Urine Microscopic? NO
[2020-05-06 18:16] LABS: Bilirubin Urine Neg (Negative); Blood Urine Neg (Negative); Glucose Urine UA Norm (Normal); Ketones Urine Negative (Negative); Leukocyte Esterase Urine Negative (Negative); Nitrate Urine Negative (Negative); Protein Urine Neg (Negative); Urine Appearance Clear (CLEAR); Urine Color Yellow (Yellow); Urobilinogen Urine Norm (Negative); pH Urine 5 (5-7)
[2020-05-06] MEDS: lidocaine 2% viscous 15 ML, aluminum-mag hydrox-simethicon 30 ML, sucralfate oral liq 1 GM PO (18:17)
[2020-05-06 18:18] VITALS: BP 155/104; PULSE 82; RESP 16; O2SAT 95
[2020-05-06 19:04] LABS: Troponin 5 2HR 14.38 ng/L (0-15)
[2020-05-06 19:24] LABS: Troponin 5 2HR Delta -0.62 ABS# (0-10)
== END 2020-05-06 19:21 | disposition home or self-care (01) ==
PROVIDERS: Family Medicine; Emergency Provider Nurse Practitioner Family
DX: K20.90 Esophagitis, unspecified without bleeding (principal); Z79.82 Long term (current) use of aspirin; I48.91 Unspecified atrial fibrillation; E13.9 Other specified diabetes mellitus without complications; I10 Essential (primary) hypertension; E78.5 Hyperlipidemia, unspecified; Z87.891 Personal history of nicotine dependence
CPT/HCPCS: 12345; 36415; 71045; 71275; 80053; 81003; 82550; 83880; 84484; 85025; 85378; 85610; 93005; 99283; 99284; Q9967

== ENCOUNTER 2020-05-08 16:50 | Emergency (ER) | payer OTHER, MEDICARE, SELFPAY ==
[2020-05-08 17:00] VITALS: BP 149/92; PULSE 69; RESP 18; TEMP 36.4; O2SAT 97; BMI 28.5
--- NOTE | 2020-05-08 17:06 | XR_ITS ---
WS: [id number] Portable AP upright chest, 05/08/2020 Clinical Data: cough, congestion Comparison: Portable chest, 05/06/2020 Findings: No nodules, masses or effusions are seen. The heart is normal. The pulmonary vascularity is not increased. No pneumonia or pneumothorax is seen. The aortic arch and descending aorta show calci fication and tortuosity. Midline sternotomy sutures are present. XR/XR chest 1V portable [id number] Impression: Atherosclerosis.
[2020-05-08 17:40] VITALS: O2SAT 97
--- NOTE | 2020-05-08 17:45 | ED_ITS ---
HPI - COVID General: Chief Complaint: COVID symptoms Stated Complaint: covid symptoms/fever/head ache Time Seen by Provider: 05/08/20 17:05 Triage information: Has fever, cough or shortness of breath . Exposure to COVID + person last 14 days History of Present Illness: HPI Narrative: Pleasant 65-year-old male patient presents to the emergency department with Covid symptoms. He was seen in the emergency department 2 days ago due to chest pain, his primary care physician advised patient to come to the ED tonight for Covid testing. He reports his brother tested positive for Covid last week, states 14 days between his last visit with his brother prior to symptom onset, he reports onset of cough congestion that started last night with night sweats. He reports shortness of breath with ambulation but is not different from baseline. He has history of diabetes, hypertension, coronary artery disease and congestive heart failure; if COVID test positive, will meet requirements for BAM infusion. Onset of symptoms; 05/06/2020. MD complaint: reported COVID exposure and has COVID symptoms Prior covid testing: no COVID 19 common symptoms: positive fever(s), chills, cough, productive cough (yellow sputum), dyspnea, fatigue, body aches, headache(s) and nasal congestion; negative throat pain, nausea, vomiting or diarrhea COVID 19 other sytmptoms: negative chest pain Onset (ago): day(s) (1) Severity: mild Pertinent comorbid conditions: diabetes, hypertension, heart disease and COPD/respiratory disease Treatment prior to arrival: cold medicine COVID Results: Nasal/Oral Coronavirus 2019 PCR Pending 05/08/20 17:18 05/08/20 Review of Systems General: Reports: 10 or more systems reviewed and unremarkable except in HPI and below Const: Reports: fever(s), chills, body aches, fatigue, malaise and night sweats Eyes: Denies: change in vision, blurry vision, eye discomfort, eye discharge or eye redness ENMT: Reports: nasal discharge, nasal congestion and post nasal drip; Denies: throat pain, oral sores, ear or mastoid pain or ear discharge Card: Reports: dyspnea on exertion (chronic, not changed); Denies: chest pain, palpitations, irregular heart rhythm, swelling of feet/ankles or orthopnea Resp: Reports: dyspnea, productive cough (yellow sputum) and chest congestion GI: Denies: abdominal pain, nausea, vomiting, dysphagia, diarrhea, constipation, change in stool character or mucus in stool : Denies: dysuria, nocturia or urinary incontinence Musc: Denies: neck pain, back pain, muscle cramps or muscle weakness Skin/Breast: Denies: rash, pruritus, erythema, changing lesions or changes in skin color Neuro: Reports: headache(s); Denies: numbness in extremities, sensory changes or difficulty walking Psych: Denies: anxiety or depression Jon/Lymph: Denies: easy bruising PFSH ED PFSH: Medical History ASHD (arteriosclerotic heart disease) Atrial fibrillation Diabetes 1.5, managed as type 2 GERD (gastroesophageal reflux disease) HTN (hypertension) Hyperlipidemia COREY (obstructive sleep apnea) Family History Mother Diabetes Hypertension Mother CAD (coronary artery disease) Father CAD (coronary artery disease) Social History Smoking and tobacco status: former smoker Alcohol intake: current Alcohol type: wine Household members: spouse Marital status: Physical Exam Const: COMMON NORMALS: no acute distress, average body habitus, patient oriented x3, healthy appearing, alert and well nourished EXAM LIMITATIONS: no altered mental status, no behavioral limitations and no physical limitations GENERAL APPEARANCE: cooperative, comfortable, well kempt, well developed and well hydrated; not in distress, not anxious, not ill appearing and not diaphoretic NUTRITIONAL APPEARANCE: thin ORIENTATION/CONSCIOUSNESS: Yes awake, Yes oriented to person, Yes oriented to place and Yes oriented to time; not confused and not patient obtunded HENMT: COMMON NORMALS: normocephalic, atraumatic, Normal external nose present and moist oral mucous membranes HEAD & SCALP: normal to inspection, normocephalic and atraumatic; no laceration and no scalp tenderness FACE & SINUS: normal facial exam and face symmetric NOSE: Normal external nose present and No nasal polyps present MOUTH: Normal oral and palatal mucosa present and tongue normal THROAT: posterior oropharynx normal and uvula midline Eye: COMMON NORMALS: Equal, round and reactive pupils present and EOMs intact bilaterally GENERAL EYE: appearance normal, both eyes and all related structures PUPIL: Yes Equal, round and reactive pupils present Neck/C-Spine: COMMON NORMALS: full ROM, no lymphadenopathy and supple GENERAL: Yes normal visual inspection and Yes trachea midline CERVICAL SPINE: Yes cervical ROM normal, No Cervical spine tenderness and No Paracervical muscle tenderness Lymph: LYMPHATIC: no lymphadenopathy noted Chest: COMMONS NORMALS: normal inspection of the chest and normal palpation of entire chest wall Resp: COMMON NORMALS: normal respiratory effort, No retractions, No use of a ccessory muscles and clear to auscultation bilaterally EFFORT & INSPECTION: Yes able to speak in complete sentences, No labored and No audible wheezes AUSCULTATION: clear to auscultation bilaterally Cardio: COMMON NORMALS: regular rate, regular rhythm, S1 normal heart sound present, S2 normal heart sound present and Peripheral pulses 2+ throughout RATE: regular rate RHYTHM: regular rhythm HEART SOUNDS: S1 normal heart sound present and S2 normal heart sound present PERIPHERAL PULSES: Peripheral pulses 2+ throughout GI: COMMON NORMALS: Normal to inspection, nondistended, normoactive bowel sounds present, Soft to palpation and non-tender INSPECTION: Yes normal to inspection PALPATION: Yes Soft to palpation : COMMON NORMALS: Yes no CVA tenderness BLADDER/KIDNEY EXAM: Yes no CVA tenderness Back/Pelvis: COMMON NORMALS: no CVA tenderness and thoracic and lumbar spine normal to inspection Extremity: COMMON NORMALS: normal to inspection and capillary refill normal Neuro: COMMON NORMALS: patient oriented x3 and no focal motor deficits SENSORIUM/ORIENTATION: Yes alert, Yes oriented to person, Yes oriented to place and Yes oriented to time Psych: COMMON NORMALS: mental status grossly normal, Normal thought process present and cooperative APPEARANCE: Yes well kempt ACTIVITY/MOTOR BEHAVIOR: Yes appropriate eye contact THOUGHT PROCESS: Normal thought process present Skin: COMMON NORMALS: no rashes or lesions noted and turgor normal GENERAL SKIN EXAM: no rashes or lesions noted and turgor normal Course Vital Signs: Vital signs: Vital Signs Temperature 97.6 F 05/08/20 17:00 Pulse Rate 64 05/08/20 18:04 Respiratory Rate 18 05/08/20 18:04 Blood Pressure 127/86 05/08/20 18:04 Pulse Oximetry 96 05/08/20 18:04 MDM - COVID MDM Narrative: Medical decision making narrative: 65-year-old male patient presents to the emergency department requesting Covid testing per his primary care provider; if positive, he will meet criteria for BAM infusion. If Covid positive, social service will contact patient for BAM infusion; I discussed infusion with the patient, he reports was familiar with the medication; reading material regarding infusion was sent home with the patient. He was also provided with pulse oximetry home monitoring device. Dexamethasone up as prescribed secondary to diabetes. Imaging Data: CXR: My impression: No acute changes; no acute process; radiology interpretation pending COVID Results: Nasal/Oral Coronavirus 2019 PCR Pending 05/08/20 17:18 05/08/20 Discharge Plan Discharge Patient Disposition: Home Clinical Impression: Suspected severe acute respiratory syndrome coronavirus 2 (SARS-CoV-2) infection, Exposure to severe acute respiratory syndrome coronavirus 2 (SARS-CoV-2) Condition: Stable Prescriptions: New azithromycin 250 mg tablet See Rx Instructions .ROUTE .COMPLEX Qty: 6 RF: 0 benzonatate 200 mg capsule 200 mg PO TID PRN (Reason: cough) Qty: 20 RF: 0 No Action potassium chloride [Klor-Con M20] 20 mEq tablet,ER particles/crystals 20 meq PO DAILY RF: 0 atorvastatin 80 mg tablet 80 mg PO DAILY RF: 0 aspirin [Aspir-81] 81 mg tablet,delayed release (DR/EC) 81 mg PO DAILY RF: 0 furosemide 40 mg tablet 40 mg PO DAILY RF: 0 duloxetine 60 mg capsule, delayed rel sprinkle 60 mg PO DAILY RF: 0 nitroglycerin [Nitrostat] 0.4 mg tablet, sublingual 0.4 mg SUBLINGUAL Q5M PRNRF: 0 tamsulosin [Flomax] 0.4 mg capsule 0.8 mg PO DAILY RF: 0 lorazepam [Ativan] 0.5 mg tablet 0.5 mg PO TID PRNRF: 0 trazodone 50 mg tablet 50 mg PO DAILY RF: 0 pantoprazole 40 mg tablet,delayed release (DR/EC) 40 mg PO DAILY RF: 0 metformin 500 mg tablet 1,000 mg PO BID RF: 0 allopurinol 300 mg tablet 300 mg PO DAILY RF: 0 cyclobenzaprine 10 mg tablet 10 mg PO TID PRN (Reason: muscle spasm) RF: 0 losartan 100 mg tablet 100 mg PO DAILY RF: 0 empagliflozin 25 mg tablet 25 mg PO DAILY RF: 0 Augmentin 875-125 mg tablet 1 tab PO BID Qty: 14 RF: 0 Carafate 1 gram tablet 1 g PO Q6H 28 Days Qty: 112 RF: 0 Discharge Orders: Discharge ED (Routine); Ordered 05/08/20 Ordered By: Kelley Ramon Referrals: Siva Badillo DO [Primary Care Provider] - Discharge Diet: Usual diet Discharge Activity: Limit activity as instructed Patient Instructions: Bronchitis (Acute) - Adult, Viral Syndrome (ED), Acute Cough (ED) Activity Restrictions/Additional Instructions: Monitor oxygen saturation with home monitor device that was given to you, oxygen saturation should read between 90 to 100%. If oxygen saturation drops to 89% or lower, you will need to return to the emergency department. You will also need to return to the ED if you develop inability to catch her breath, increased shortness of breath or chest pain, rest at home, remain in quarantine until results are called to you. Results should be available tomorrow. If results are positive, you are eligible to receive the monoclonal antibody infusion for COVID-19. Arrangements will be made for infusion, health and social care teacher will be contacting you with an appointment. Take azithromycin until all gone Take cough medication, Tessalon Perles, as needed for cough, drink plenty of water to stay hydrated. May continue with Tylenol as needed for fever/chills. Coding Level of Care Code ED [employer] [facility] Manager for Antwan Haddad Exam Comprehensive
[2020-05-08 18:04] VITALS: BP 127/86; PULSE 64; RESP 18; O2SAT 96
[2020-05-09 14:25] LABS: Coronavirus Test Green County DETECTED
--- NOTE | 2020-05-09 17:07 | PC.NURSE ---
Patient notified of COVID results at this time.
--- NOTE | 2020-05-10 08:31 | PC.NURSE ---
PT WAS CONTACTED AND GIVEN THE RESULTS OF HIS COVID TEST
== END 2020-05-08 18:05 | disposition home or self-care (01) ==
PROVIDERS: Emergency Provider Nurse Practitioner Family; PCP Emergency Medicine Emergency Medical Services
DX: U07.1 COVID-19 (principal); Z20.822 Contact with and (suspected) exposure to COVID-19; Z79.82 Long term (current) use of aspirin; Z79.84 Long term (current) use of oral hypoglycemic drugs; I48.91 Unspecified atrial fibrillation; E13.9 Other specified diabetes mellitus without complications; I10 Essential (primary) hypertension; E78.5 Hyperlipidemia, unspecified; Z87.891 Personal history of nicotine dependence
CPT/HCPCS: 12345; 71045; 87635; 99281; 99283

== ENCOUNTER 2020-05-13 12:19 | Outpatient (CLI) | payer MEDICARE, OTHER, SELFPAY ==
--- NOTE | 2020-05-13 12:27 | AMB.MCA ---
Patient Information [facility] COVID test results: Nasal/Oral Coronavirus 2019 PCR Detected H 05/08/20 17:18 05/08/20 Criteria/Plan Inclusion/Exclusion Criteria weight >/= 40kg, + direct test </= 10 days ago and symptom onset </= 10 days ago age >/= 65 not requiring oxygen (if not chronically on oxygen) Patient education patient/caregiver received/reviewed fact sheet, Emergency Use Authorization/unapproved drug status discussed with patient/caregiver, alternatives to this treatment discussed with patient/caregiver, risks and benefits of medication reviewed with patient/caregiver, patient/caregiver given opportunity for questions, which were answered and patient/caregiver consents to receiving Monoclonal Antibody Treatment Plan for treatment Meets criteria for Monoclonal Antibody infusion
[2020-05-13 12:37] VITALS: BP 138/93; PULSE 59; RESP 17; TEMP 35.9; O2SAT 94; BMI 28.5
[2020-05-13 13:56] VITALS: BP 111/71; PULSE 57; RESP 17; TEMP 36.4; O2SAT 95
[2020-05-13 14:18] VITALS: BP 125/82; PULSE 54; RESP 17; TEMP 36.8; O2SAT 96
[2020-05-13 14:33] VITALS: BP 127/75; PULSE 54; RESP 17; TEMP 36.8; O2SAT 96
[2020-05-13 15:16] VITALS: BP 138/79; PULSE 59; RESP 18; TEMP 37.2; O2SAT 98
[2020-05-13 15:29] VITALS: BP 138/79; PULSE 59; RESP 18; TEMP 37.2; O2SAT 98
--- NOTE | 2020-05-22 15:55 | DCPLANNER ---
late entry - clinical case manager called patient on 05.16.20 after getting the BAM infusion, unable to speak with patient at this time. 05.22.20 - clinical case manager called patient to check on patient after getting the BAM infusion, unable to speak with patient at this time, a voicemail was left for patient to return case supervisor phone call.
== END 2020-05-13 15:29 | disposition home or self-care (01) ==
PROVIDERS: PCP Emergency Medicine Emergency Medical Services; Visit Provider Nurse Practitioner Family
DX: U07.1 COVID-19 (principal)
CPT/HCPCS: 96365

== ENCOUNTER 2020-07-18 09:03 | Outpatient (CLI) | payer MEDICARE, OTHER, SELFPAY ==
--- NOTE | 2020-07-18 09:30 | USCV_ITS ---
Fuentes Gambino Age: 65 Gender: M : 1955 Exam Date: 07/18/2020 09:27 Ordering Phys: Placido Aguayo M.D ([email or web address]) Technologist: Gen Smith Exam Location: [facility] [place] Indication: HX CAD BP: 122 / 87 HR: 58 Rhythm: Sinus Technical Quality: Adequate MEASUREMENTS (Male / Female) Normal Values 2D ECHO LV Diastolic Diameter PLAX 5.0 cm 4.2 - 5.9 / 3.9 - 5.3 cm LV Systolic Diameter PLAX 2.7 cm IVS Diastolic Thickness 0.9 cm 0.6 - 1.0 / 0.6 - 0.9 cm IVS Systolic Thickness 1.4 cm LVPW Diastolic Thickness 0.9 cm 0.6 - 1.0 / 0.6 - 0.9 cm LVPW Systolic Thickness 1.3 cm LVOT Diameter 2.1 cm LV Ejection Fraction 2D Teich 76.4 % LV Ejection Fraction MOD 2C 64.6 % LV Ejection Fraction 2C AL 63.9 % LA Diameter 3.6 cm LA Width 4.5 cm LA Height 5.5 cm RA Width 3.7 cm RA Height 5.0 cm Aorta at Sinotubular Diameter 2.9 cm M-MODE LV Diastolic Diameter MM 5.8 cm 4.2 - 5.9 / 3.9 - 5.3 cm LV Systolic Diameter MM 3.2 cm LV Ejection Fraction MM Teich 75.0 % IVS Diastolic Thickness MM 0.9 cm 0.6 - 1.0 / 0.6 - 0.9 cm IVS Systolic Thickness MM 1.4 cm LVPW Diastolic Thickness MM 1.2 cm 0.6 - 1.0 / 0.6 - 0.9 cm LVPW Systolic Thickness MM 2.1 cm RV Diastolic Diameter MM 1.4 cm Aortic Annulus Diameter 4.2 cm LA Ao Ratio MM 0.8 MV E Point Septal Separation 1.4 cm DOPPLER AV Peak Velocity 165.0 cm/s LVOT Peak Velocity 111.0 cm/s AV Area Cont Eq vti 2.5 cm squared AV Area Cont Eq pk 2.4 cm squared MV Area PHT 5.0 cm squared Mitral E to A Ratio 0.7 MV E' Velocity 35.5 cm/s Mitral E to MV E' Ratio 6.5 Mitral E to LV E' Lateral Ratio 6.4 Mitral E to LV E' Septal Ratio 6.6 TR Peak Velocity 163.3 cm/s TR Peak Gradient 10.7 mmHg TV Peak E Velocity 76.0 cm/s Right Atrial Pressure 3.0 mmHg Pulmonary Artery Systolic Pressu 13.7 mmHg PV Peak Velocity 116.0 cm/s RV Acceleration Time 0.1 s FINDINGS Left Ventricle Normal left ventricular size. LV systolic function is borderline normal with EF of 50-55% .No regional wall motion abnormalities. Grade 1 diastolic dysfunction Right Ventricle The right ventricle is normal in size and function. Right Atrium The right atrium is normal in size. Left Atrium The left atrium is normal in size. Mitral Valve Structurally normal mitral valve without significant stenosis or prolapse. There is trace mitral regurgitation. Aortic Valve Structurally normal aortic valve without significant sclerosis or stenosis. There is no aortic regurgitation. Tricuspid Valve Structurally normal tricuspid valve without significant stenosis or regurgitation. Insufficient TR jet to calculate RVSP Pulmonic Valve Structurally normal pulmonic valve without significant stenosis. There is no pulmonic regurgitation. Pericardium Normal pericardium without effusion. Aorta Normal ascending aorta dimension. CONCLUSIONS LV systolic function is borderline normal with EF of 50-55% Grade 1 diastolic dysfunction Trace mitral regurgitation No comparison studies are available Placido Aguayo MD (Electronically Signed) Final Date: 03 August 2020 13:12 S
== END 2020-07-18 09:04 | disposition home or self-care (01) ==
LOC: US 09:05
PROVIDERS: PCP Emergency Medicine Emergency Medical Services; Visit Provider Internal Medicine
DX: R06.02 Shortness of breath (principal); I34.0 Nonrheumatic mitral (valve) insufficiency
CPT/HCPCS: 93306

== ENCOUNTER 2020-07-31 08:00 | Outpatient (CLI) | payer MEDICARE, OTHER, SELFPAY ==
--- NOTE | 2020-07-31 08:45 | FL_ITS ---
WS: [id number] UPPER GI WITH AIR TECHNICAL: Double contrast upper GI with thin and thick barium FLUOROSCOPY TIME: 4.7 minutes CLINICAL INFORMATION: K21.9 - Gastro-esophageal reflux disease without esophagitis COMPARISON: None. FINDINGS: Swallowing: No evidence of aspiration or penetration. Esophagus: Moderate esophageal dilatation with standing column of contrast on the upright imaging. So mewhat delayed emptying at the gastroesophageal junction at the site of gastric banding. Moderate eso phageal dysmotility with tertiary contractions. Gastroesophageal reflux: Moderate reflux in the upright and supine positions Stomach: Prior gastric banding procedure with expected narrowing at the site of gastric banding. Othe rwise normal double contrast stomach with normal emptying. Small to moderate hiatal hernia proximal t o the gastric banding Duodenum: Normal duodenal C-loop Other findings: Prior sternotomy. Aortic calcification. FL/FL upper GI w air* [id number] IMPRESSION: 1. Moderate esophageal dysmotility with tertiary contractions. Moderate dilata tion with standing column of contrast on the upright imaging with delayed empty ing at the site of gastric banding. 2. Moderate active esophageal reflux in the upright and supine positions. 3. Small to moderate esophageal hiatal hernia proximal to the gastric banding. 4. Otherwise normal double contrast stomach and duodenal C-loop.
== END 2020-07-31 08:01 | disposition home or self-care (01) ==
LOC: RADWPI 08:05
PROVIDERS: PCP Emergency Medicine Emergency Medical Services; Visit Provider Surgery
DX: K21.9 Gastro-esophageal reflux disease without esophagitis (principal); K44.9 Diaphragmatic hernia without obstruction or gangrene
CPT/HCPCS: 74246

== ENCOUNTER → 2020-08-14 14:18 | Outpatient (BNVA) | payer MEDICARE, OTHER, SELFPAY | PROVIDERS: PCP Emergency Medicine Emergency Medical Services; Visit Provider Surgery | DX: Z98.84 Bariatric surgery status (principal); Z20.822 Contact with and (suspected) exposure to COVID-19 | CPT/HCPCS: 87635 ==

== ENCOUNTER 2020-08-18 10:16 | Day surgery (SDC) | payer MEDICARE, OTHER, SELFPAY ==
[2020-08-15 15:05] VITALS: BMI 28.2
[2020-08-18 10:48] VITALS: BP 157/89; PULSE 54; RESP 18; TEMP 37.1; O2SAT 97
[2020-08-18] MEDS: sodium chloride 0.9% 1,000 ML 30 ML IV (11:00)
[2020-08-18 11:03] LABS: Glucose Point of Care 163 mg/dL (70-110)
--- NOTE | 2020-08-18 11:23 | W.PM.OPSUD ---
Surgery/Procedure H&P Update DATE OF PROCEDURE: August 18, 2020 DATE H&P PERFORMED: 08/13/20 H&P UPDATE INFORMATION: I have reviewed H&P completed within last 30 days, I have examined patient prior to procedure and No changes to prior documentation PREOP DIAGNOSIS: Persistent acid reflux and history of gastric band PRIMARY INDICATION FOR PROCEDURE: THE SAME PLANNED PROCEDURE: Operation Date: 08/18/20 11:55 Proposed Procedures p Gastric Band Adjustment 81614 Z98.84(Not Applicable) - Paul Holland MD s EGD 06058 Z98.84(Not Applicable) - Paul Holland MD
--- NOTE | 2020-08-18 11:43 | ANES.PREANE2 ---
Pre-Anesthetic Assessment Pre-Anesthetic Assessment: Height/Weight: Height 1.88 m Weight 99.79 kg Temp Pulse Resp BP Pulse Ox 98.8 F 54 L 18 157/89 97 08/18/20 10:48 08/18/20 10:48 08/18/20 10:48 08/18/20 10:48 08/18/20 10:48 Preop Diagnosis: Persistent acid reflux and history of gastric band Proposed Procedure: Operation Date: 08/18/20 11:55 Proposed Procedures p Gastric Band Adjustment 22750 Z98.84(Not Applicable) - Paul oHlland MD s EGD 23525 Z98.84(Not Applicable) - Paul Holland MD Was Beta Ирина taken within 24 hours: Yes Was Clonidine taken within 24 hours: N/A Last intake: Intake Last Liquid Date 08/18/20 Last Liquid Time 07:30 Last Solid Date 08/17/20 Last Solid Time 21:00 Social: Social History: Tobacco (h/o smoking) and No alcohol Exam: Pre-Anes Outpt Exam: alert, oriented x 3 and regular rate & rhythm Airway: Submandibular: WNL Cervical ROM: WNL MP: 2 Dentition: False Pulmonary: Pulmonary: Sleep apnea CV/HEM: CV/HEM: CAD (CABG) and HTN GI: GI: GERD Metabolic: Metabolic: DM Anesthetic Plan: ASA status: 3 Anesthesia: General Risk of > 500 ml blood loss (7ml/kg in children): No Meds/Allergies Current Medications: Current Medications Generic Name Dose Route Start Last Admin Trade Name Freq PRN Reason Stop Dose Admin Sodium Chloride 1,000 mls @ 30 ml s/hr 08/18/20 10:45 08/18/20 11:00 Sodium Chloride 0.9% IV 30 mls/hr .Q24H KENTRELL Administration PFSH Anesthesia PFSH: Medical History ASHD (arteriosclerotic heart disease) Atrial fibrillation Diabetes 1.5, managed as type 2 GERD (gastroesophageal reflux disease) HTN (hypertension) Hyperlipidemia COREY (obstructive sleep apnea) Surgical History History of laparoscopic adjustable gastric banding Family History Mother Diabetes Hypertension Mother CAD (coronary artery disease) Father CAD (coronary artery disease) Social History Smoking and tobacco status: former smoker Alcohol intake: current Alcohol type: wine Household members: spouse Marital status: Data Anesthesia Other Labs: Laboratory Results - last 48 hr 08/18/20 10:57 POC Glucose 163 H Cardiac Studies: No Data to Display
[2020-08-18] MEDS: lidocaine 2% INJ 20 mL INJECTION (11:45)
--- NOTE | 2020-08-18 11:56 | PM.OP ---
Operative Report Date of procedure: August 18, 2020 Pre-op Diagnosis: Persistent acid reflux and history of gastric band Post-op diagnosis: same Post-op Findings: Less than 1 mL in the band port and tubing that was removed GE junction at 42 cm and the band is located at 47 cm No evidence of gastric band erosions Mild erythema at the prepyloric area Procedure Done: 1-Adjustment of gastric band. 2Diagnostic EGD without biopsy Surgeon: Paul Holland Manager Immunology: spray technician Alcon patient care technician instructor Isa Circulating nurse Judy Kurtz Anesthesia: MAC (berry picker machine operator Nilesh) Estimated blood loss (mL): 1 Condition: stable Disposition: same day Brief History: Symptomatic acid reflux in the presence of adjustable gastric band. Full H&P and informed consent per chart Procedure: Patient was identified in holding area, was taken to the operating room and was placed in supine position Time-out was done verifying the patient's name and the procedure and all were in agreement After prep and drape of the upper abdomen under sterile technique, I attempted using a Galloway needle connected to 10 mL syringe, and less than 1 mL was retrieved otherwise there was no residual fluid in the tubing.patient tolerated this procedure well under local anesthesia lidocaine 2%, band aid was placed and attention was deviated towards the EGD part IV propofol was then infused by the anesthesia provider. Patient was placed in left lateral position after a bite block was placed in her mouth, started by introducing the EGD via the mouth under direct visualization, the patient was continuously monitored via director of cardiac rehabilitation, I was able to assess the esophagus stomach and duodenum till the second part, mild erythema at the prepyloric area. GE junction at 42 cm from the incisors, gastric band was noticed at 47 cm from the incisors, no evidence of gastric band erosions,the remaining of the examination was unremarkable except for mild gastritis. D1 and D2 were normal. The scope was retrieved under direct visualization and gas was deflated,no biopsies were obtained at that point. Patient tolerated the procedure well. And was taken to the recovery area in stable condition I was present for the whole entire procedure
[2020-08-18 11:58] VITALS: BP 105/60; PULSE 61; RESP 12; TEMP 36.5; O2SAT 94
--- NOTE | 2020-08-18 12:03 | P.PCN_ITS ---
Documented by User: Nilesh Peralta CRNA 08/18/20 12:03 PACU note PACU note: VSS, Good respiratory effort, report to ENTERTAINMENT LAWYER Post-Anesthesia Exam: awake
[2020-08-18 12:05] VITALS: BP 112/61; PULSE 56; RESP 14; O2SAT 93
[2020-08-18 12:10] VITALS: BP 109/61; PULSE 54; RESP 16; TEMP 36.3; O2SAT 96
[2020-08-18 12:18] VITALS: BP 120/72; PULSE 64; RESP 18; TEMP 36.9; O2SAT 94
[2020-08-18 12:30] VITALS: BP 141/90; PULSE 57; RESP 18; O2SAT 98
--- NOTE | 2020-08-18 14:54 | ANE.PACU2 ---
Inpatient post-anesthesia follow up: Airway intact: Yes Vital signs: Temperature 98.4 F Pulse Rate 57 Respiratory Rate 18 Blood Pressure 141/90 Pulse Oximetry 98 Oxygen Delivery Me thod Room Air Oxygen Flow Rate Fraction of Inspir ed Oxygen Hydration adequate: Yes Nausea and vomiting: No Pain level: 2 Mental status: Baseline
== END 2020-08-18 13:00 | disposition home or self-care (01) ==
PROVIDERS: PCP Emergency Medicine Emergency Medical Services; Visit Provider Surgery
PROC: (CPT 43999; principal; 2020-08-18 11:45)
PROC: 0DJ08ZZ Inspection of Upper Intestinal Tract, Via Natural or Artificial Opening Endoscopic (ICD-10-PCS; CPT 43235; 2020-08-18 11:45)
DX: Z46.51 Encounter for fitting and adjustment of gastric lap band (principal); K21.9 Gastro-esophageal reflux disease without esophagitis; I25.10 Atherosclerotic heart disease of native coronary artery without angina pectoris; Z95.1 Presence of aortocoronary bypass graft; I10 Essential (primary) hypertension; I48.91 Unspecified atrial fibrillation; E13.9 Other specified diabetes mellitus without complications; E78.5 Hyperlipidemia, unspecified; G47.33 Obstructive sleep apnea (adult) (pediatric); Z82.49 Family history of ischemic heart disease and other diseases of the circulatory system; Z83.3 Family history of diabetes mellitus; Z87.891 Personal history of nicotine dependence; Z79.82 Long term (current) use of aspirin
CPT/HCPCS: 43771; 36416; 43235; 82962; J2704; J7030

== ENCOUNTER → 2020-09-12 09:52 | Outpatient (BNVA) | payer OTHER, SELFPAY | PROVIDERS: PCP Emergency Medicine Emergency Medical Services; Visit Provider Surgery | DX: Z01.812 Encounter for preprocedural laboratory examination (principal); Z20.822 Contact with and (suspected) exposure to COVID-19 | CPT/HCPCS: 87635 ==

== ENCOUNTER 2020-09-16 12:08 | Observation (INO) | payer OTHER, SELFPAY ==
[2020-09-12 12:02] VITALS: BMI 28.0
[2020-09-16] VITALS (16 sets, daily range): BP systolic 90–140; BP diastolic 49–86; PULSE 60–83; RESP 15–20; TEMP 36.2–37; O2SAT 89–100
[2020-09-16] MEDS: sodium chloride 0.9% 1,000 ML 30 ML IV (07:46)
[2020-09-16] MEDS: acetaminophen 1,000 MG/100 ML PIGGYBACK 400 MG IV ×2 (07:46→23:22)
[2020-09-16] MEDS: scopolamine 1.5 Patch 1 PATCH TRANSDERMA (07:47)
[2020-09-16] MEDS: heparin 5,000 unit/mL INJ 1 mL 3000 UNIT SUBCUT (07:50)
[2020-09-16] MEDS: pantoprazole 40 mg SDV IVP (07:55)
[2020-09-16] MEDS: diphenhydrAMINE 50 mg/mL SDV 1mL 12.5 MG IVP (08:04)
[2020-09-16 08:07] LABS: Glucose Point of Care 154 mg/dL (70-110)
--- NOTE | 2020-09-16 08:21 | ANES.PREANE2 ---
Pre-Anesthetic Assessment Pre-Anesthetic Assessment: Height/Weight: Height 1.88 m Weight 99.337 kg Temp Pulse Resp BP Pulse Ox 97.6 F 60 18 122/86 96 09/16/20 07:35 09/16/20 07:35 09/16/20 07:35 09/16/20 07:35 09/16/20 07:35 Preop Diagnosis: Persistent acid reflux and history of gastric band Proposed Procedure: Operation Date: 09/16/20 08:55 Proposed Procedures p 53578 93185 z98.84 lap possible open removal of adjustable lap band(Not Applicable) - Paul Holland MD s EGD(Not Applicable) - Paul Holland MD Was Beta Ирина taken within 24 hours: Yes Was Clonidine taken within 24 hours: N/A Last intake: Intake Last Liquid Date 09/15/20 Last Liquid Time 23:00 Last Solid Date 08/06/20 Last Solid Time 19:00 Social: Social History: Tobacco and No alcohol Exam: Pre-Anes Outpt Exam: alert, oriented x 3 and regular rate & rhythm Airway: Submandibular: WNL Cervical ROM: WNL MP: 2 Dentition: Full Pulmonary: Pulmonary: COPD and Sleep apnea CV/HEM: CV/HEM: HTN and PVD GI: GI: GERD Metabolic: Metabolic: DM Anesthetic Plan: ASA status: 3 Anesthesia: General Risk of > 500 ml blood loss (7ml/kg in children): No Meds/Allergies Current Medications: Current Medications Generic Name Dose Route Start Last Admin Trade Name Freq PRN Reason Stop Dose Admin Sodium Chloride 1,000 mls @ 30 ml s/hr 09/16/20 07:30 09/16/20 07:46 Sodium Chloride 0.9% IV 09/17/20 07:29 30 mls/hr .Q24H KENTRELL Administration PFSH Anesthesia PFSH: Medical History ASHD (arteriosclerotic heart disease) Atrial fibrillation Diabetes 1.5, managed as type 2 GERD (gastroesophageal reflux disease) HTN (hypertension) Hyperlipidemia COREY (obstructive sleep apnea) Surgical History History of laparoscopic adjustable gastric banding Family History Mother Diabetes Hypertension Mother CAD (coronary artery disease) Father CAD (coronary artery disease) Social History Smoking and tobacco status: former smoker Quit status (tobacco): has quit using tobacco Year quit tobacco: 2000 Alcohol intake: current Alcohol intake frequency: holidays/special occasions only Alcohol type: wine Household members: spouse Marital status: Data Anesthesia CBC & Chem 7: 09/16/20 07:47 Other Labs: Laboratory Results - last 48 hr 09/16/20 07:44 POC Glucose 154 H Cardiac Studies: No Data to Display
[2020-09-16 08:28] LABS: Anion Gap 13.4 (5-19); Blood Urea Nitrogen 21 mg/dL (8-23); Calcium 8.8 mg/dL (8.5-10.5); Carbon Dioxide 27 mmol/L (22-29); Chloride 103 mmol/L (98-107); Glomerular Filtration Rate 74.5 mL/min (90-130); Glucose 164 mg/dL (65-115); Osmolality Calculated 295 mOsm/kg (285-295); Potassium 4.4 mmol/L (3.5-5.1); Sodium 139 mmol/L (136-145)
--- NOTE | 2020-09-16 08:41 | W.PM.OPSUD ---
Surgery/Procedure H&P Update DATE OF PROCEDURE: September 16, 2020 DATE H&P PERFORMED: 08/21/20 H&P UPDATE INFORMATION: I have reviewed H&P completed within last 30 days, I have examined patient prior to procedure and No changes to prior documentation PREOP DIAGNOSIS: Persistent acid reflux and history of gastric band PRIMARY INDICATION FOR PROCEDURE: The same PLANNED PROCEDURE: Operation Date: 09/16/20 08:55 Proposed Procedures p 10841 [id number] z98.84 lap possible open removal of adjustable lap band(Not Applicable) - Paul Holland MD s EGD(Not Applicable) - Paul Holland MD
--- NOTE | 2020-09-16 11:49 | PM.OP ---
Operative Report Date of procedure: September 16, 2020 Pre-op Diagnosis: Persistent acid reflux and history of gastric band Post-op diagnosis: same Post-op Findings: Evidence of gastric band without erosions Procedure Done: 1-Laparoscopic explantation of gastric band. 2-Placement of intra-abdominal drain 3-intraoperative esophagogastroscopy Implants: Left upper drain 15 rwandan at left upper quadrant Specimens removed/disposition: Gastric Band Relaize band Surgeon: Paul Holland Speech Writer: Surgical mable Rodriguez Anesthesia: General (RAUL Galloway and Dr. Oro) Estimated blood loss (mL): 10 IV fluids (mL): 1,200 Urine output (mL): 250 Condition: stable Disposition: observation Brief History: Complications related to gastric band. Full H&P informed consent per chart. Procedure: After identifying the patient in the holding area, patient was given Heparin subcutaneous, patient was then taken to the OR placed in supine position, intubated by anesthesia, IV antibiotics were given per protocol, SCDs were on and functioning, and the blockers were updated. Montano catheter was inserted by the circulating nurse revealing clear urine, prep and drape of the abdomen was done under the usual sterile technique. I started by 15 cm below the xiphoid and 3 cm to the left of the midline 15 blade knife was used for skin incision, I used a 12 mm Opti-Vu port access to the abdominal cavity with a (0)10 mm scope, low flow gas followed by high flow at a pressure of 15 mm, followed by 5 mm trocar was placed at the left flank region again under direct visualization. Anesthesia was asked to have the patient in reverse T Gonzalez.Under direct vision I was able to place another 12 mm port at the epigastric region towards the left of the midline , followed by 5 mm trocar was placed 3 fingerbreadths below the 12 mm trocar and towards the midline. An epigastric incision was created and using an obturato of a 5 mm trocar was used to create an entrance for retched forceps to be introduced under direct visualization and placed onto the left leonila of the diaphragm to help lifting the liver up. To maximize exposure. I started Dissection using the Harmonic scalpel at the band(Realize Brand) site following the tubing system ,combination of sharp and blunt dissection was used revealing the band encircling the stomach and evidence of pseudocapsule was noticed.I was able to take all adhesions down with appropriate hemostasis without violating the stomach or esophagus.,appropriate dissection was achieved freeing the band from the surrounding adhesions. At this point I was able to unbuckle the band buckle,thus the band was completely freed out from the encirclement around the stomach the whole band system was taken out for gross pathology. I scrubbed out and inserted in an upper endoscopy for completion purpose and had my assistant project manager to clamp distally onto the stomach,irrigation was done,I insufflated gas within the stomach to check for any leaks and there was no evidence of leak was identified nor injuries within the abdominal cavity,the esophagus and stomach looked within normal, the upper endoscopy was performed under direct visualization of the laparoscopic view. At that point I deflated the stomach and the scope was retrieved out without complication I re-scrubbed again and created transverse incision at the previous scar of the actual port placement and at that point the trochars were taken out and gas was deflated, I was able to dissect it and the tubing was already cut from the band,I continued dissection and the whole port and tubing system was taken out and sent for gross pathology. Thorough irrigation and suction was done to the incision site and closure using 2-0 Vicryl to the fascial defect was achieved, the introduction of trochars was achieved gas was allowed to inflate, a laparoscopic survey was achieved showing no injuries were identified I elected to place a couple of 2-0 silk [id number] sutures at the site of explantation of the band to allow appropriate healing followed by omental flap onto the GE junction. At that point I elected to place a 19 Brazilian rounded Brian drain underneath the left lobe of the liver at the site of the explantation of the band under direct vision, appropriate hemostasis was achieved, the drain was introduced via the left flank 5 mm port, secured to the abdominal wall with 2/0 nylon. Bilateral TAP (transversus abdominous plain peripheral nerve block )block using Exparel 20 mL Exparel 40 ml Normal saline 20 ml bupivacaine 0.25% 30 mL on each side injected 20 mL injected the port sites Under direct visualization a [employer] device was used to close the 12 mm port sites using PDS suture suture, at that point gas was allowed to deflate, trocars were taken out under direct visualization.Skin fabio were used to close skin incisions, thorough irrigation was done at the port site followed by hemostasis, 2-0 Vicryl was used to close the subcutaneous layer, followed by skin fabio then dry dressings Counts of instruments, needles and sponges were completed at the end of the procedure The Montano catheter was taken out by the circulating nurse I Was present for the whole entire procedure Patient tolerated the procedure well and got extubated and was taken to the recovery room
--- NOTE | 2020-09-16 11:59 | P.PCN_ITS ---
PACU note PACU note: VSS, Good respiratory effort, report to DINING ROOM HOSTESS Post-Anesthesia Exam: awake
--- NOTE | 2020-09-16 11:59 | PM.PACU ---
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
[2020-09-16] MEDS: sodium chloride 0.9% 1,000 ML 100 ML IV ×2 (13:28→23:29)
--- NOTE | 2020-09-16 17:01 | ANE.PACU2 ---
Inpatient post-anesthesia follow up: Airway intact: Yes Vital signs: Temperature 97.4 F Pulse Rate 71 Respiratory Rate 18 Blood Pressure 135/75 Pulse Oximetry 95 Oxygen Delivery Me thod Nasal Cannula Oxygen Flow Rate 2 Fraction of Inspir ed Oxygen Hydration adequate: Yes Nausea and vomiting: No Pain level: 2 Mental status: Baseline
[2020-09-16 17:03] LABS: Glucose Point of Care 150 mg/dL (70-110)
[2020-09-16 21:01] LABS: Glucose Point of Care 101 mg/dL (70-110)
[2020-09-17 02:42] LABS: Hematocrit 40.4 % (42.0-52.0); Hemoglobin 13.1 g/dL (11.7-16.6)
[2020-09-17 03:03] LABS: Anion Gap 12.2 (5-19); Blood Urea Nitrogen 18 mg/dL (8-23); Calcium 7.7 mg/dL (8.5-10.5); Carbon Dioxide 24 mmol/L (22-29); Chloride 107 mmol/L (98-107); Glomerular Filtration Rate 74.5 mL/min (90-130); Glucose 102 mg/dL (65-115); Osmolality Calculated 290 mOsm/kg (285-295); Potassium 4.2 mmol/L (3.5-5.1); Sodium 139 mmol/L (136-145)
[2020-09-17 04:15] VITALS: BP 107/66; PULSE 66; RESP 18; TEMP 36.9; O2SAT 93
--- NOTE | 2020-09-17 06:48 | PC.NURSE ---
Shift Summary Patient rested well throughout shift. Patient had moderate abd and shoulder pain during shift on average of a 6 on the 0-10 pain scale. Patient ambulated 650 ft during this shift. Patient is resting comfortably in bed.
[2020-09-17 07:21] LABS: Glucose Point of Care 119 mg/dL (70-110)
[2020-09-17 08:00] VITALS: BP 148/67; PULSE 59; RESP 17; TEMP 36.7; O2SAT 95
--- NOTE | 2020-09-17 08:00 | FL_ITS ---
WS: [id number] Upper GI series with Gastrografin, 09/17/2020 Clinical Data: Status Post explantation of gastric band Comparison: Upper GI series, 07/31/2020. Fluoroscopy time: 1 minute Findings: The esophagus shows tertiary contractions. No reflux, mass, polyp, erosion or ulceration is seen. The re is a hiatal hernia. The stomach shows normal mucosa with no ulcer, mass or deformity. No contrast leakage is seen. The duodenal bulb is normal with no ulceration. There are midline sternotomy sutures present. FL/VT upper GI series 63970 Impression: 1. Gastric sleeve procedure with reduction in size of the proximal stomach. 2. Hiatal hernia without significant reflux. 3. Negative for extravasation of contrast. 4. Poor esophageal motility.
[2020-09-17] MEDS: diatrizoate meglumine 120 mL Sol PO (08:49)
[2020-09-17] MEDS: sodium chloride 0.9% 1,000 ML 100 ML IV (09:05)
--- NOTE | 2020-09-17 10:13 | PC.CHAP ---
Pastoral Care Encounter/Spiritual Assessment Type of Contact [] Declined dinkey engine mechanic visit [] Patient/Family/Request visit [] Outpatient visit [] Follow-up visit [] Physician referral [] Code/Alert [x] Routine visit [] Staff referral [] Actively dying [] Patient sleeping [] Family support [] [x] Out of room [] Palliative care [] [] Receiving care in room [] Pre-surgical visit [] Trauma [] Long length of stay [] ICU visit [] Other: Relational/Emotional Strength [] Patient feels connected with others/family/visitors/staff [] Distress [] Loneliness/isolation [] Abandonment Spirituality of Patient [] Person of [place] [] Attends [employer] of their [place] [] Believes in Prayer [] Reads Bible or Mosque materials [] There are Spiritual issues to be addressed Sales Appointment Coordinator Interventions [] Prayer [] Active listening [] Non-anxious presence [] Spiritual/emotional support [] Crisis/trauma care [] Spiritual counseling [] Bereavement support [] Provided bereavement packet [] Provided Bible/devotional materials [] Provided toy/stuffed animal, coloring book to patient or family member [] Provided Communion [] Anointing/[place] [] Salvation [] Completed spiritual assessment [] Other: Impact on Illness or Injury [] Angry [] Fearful [] Anxious [] Often cries [] Exhaustion [] Unable to work [] Unable to attend sabianist [] Unable to walk/stand [] Unable to read [] Unable to drive [] Unable to eat/drink [] Unable to sleep [] Unable to be with family [] Patient intubated [] Other: Summary Time spent with patient
[2020-09-17 11:04] LABS: Glucose Point of Care 112 mg/dL (70-110)
[2020-09-17] MEDS: metoprolol tartrate 50 mg Tablet PO (11:06)
[2020-09-17 11:12] VITALS: BP 121/73; PULSE 66; RESP 17; TEMP 36.8; O2SAT 92
[2020-09-17 16:00] VITALS: BP 144/76; PULSE 55; RESP 17; TEMP 37.1; O2SAT 97
[2020-09-17 16:06] VITALS: PULSE 68; O2SAT 89
[2020-09-17 16:33] LABS: Glucose Point of Care 132 mg/dL (70-110)
--- NOTE | 2020-09-17 17:46 | PM.SDS ---
Short Stay Summary Providers Date of Admit/Discharge: 09/20/20 Attending Provider: Paul Holland MD Primary Care Provider: Siva Badillo DO Chief Complaint: 13682 lap possible open removal of adjustable lap HPI History of Present Illness Mr. Fuentes Gambino is a 65 year old male has been complaining of nausea and vomiting related to his gastric band. And even in spite of removal all of the fluid continues to complain of that. Patient was offered an elective surgery for laparoscopic explantation of gastric band and intraoperative EGD and he agreed to proceed accordingly. Review of Systems General: Reports: 10 or more systems reviewed and unremarkable except in HPI and below Home Meds/Allergies Home Medications and Allergies Home Medications Medication Instructions Recorded Confirmed Type allopurinol 300 mg tablet 300 mg PO DAILY 10/16/19 09/16/20 History aspirin 81 mg tablet,delayed 81 mg PO DAILY 10/16/19 09/16/20 History release atorvastatin 80 mg tablet 80 mg PO DAILY 10/16/19 09/16/20 History duloxetine 60 mg capsule,delayed 60 mg PO DAILY 10/16/19 09/16/20 History release sprinkle empagliflozin 25 mg tablet 25 mg PO DAILY 10/16/19 09/16/20 History furosemide 40 mg tablet 40 mg PO DAILY 10/16/19 09/16/20 History lorazepam 0.5 mg tablet 0.5 mg PO TID PRN 10/16/19 09/16/20 History losartan 100 mg tablet 100 mg PO DAILY 10/16/19 09/16/20 History metformin 500 mg tablet 1,000 mg PO BID tab 10/16/19 09/16/20 History nitroglycerin 0.4 mg sublingual 0.4 mg SUBLINGUAL Q5M PRN 10/16/19 09/12/20 History tablet pantoprazole 40 mg tablet,delayed 40 mg PO DAILY 10/16/19 09/16/20 History release potassium chloride 20 mEq 20 meq PO DAILY 10/16/19 09/16/20 History tablet,extended release(part/cryst) tamsulosin 0.4 mg capsule 0.8 mg PO DAILY cap 10/16/19 09/16/20 History trazodone 50 mg tablet 50 mg PO DAILY 10/16/19 09/16/20 History cholecalciferol (vitamin D3) 100 100 mcg PO DAILY 06/27/20 09/16/20 History mcg (4,000 unit) capsule metoprolol tartrate 50 mg tablet 50 mg PO DAILY 06/27/20 09/16/20 History famotidine 20 mg tablet 20 mg PO BID 08/21/20 09/16/20 History Allergies Allergy/AdvReac Type Severity Reaction Status Date / Time No Known Allergies Allergy Verified 09/17/20 17:47 PFSH Acute PFSH: Medical History ASHD (arteriosclerotic heart disease) Atrial fibrillation Diabetes 1.5, managed as type 2 GERD (gastroesophageal reflux disease) HTN (hypertension) Hyperlipidemia COREY (obstructive sleep apnea) Surgical History History of laparoscopic adjustable gastric banding Family History Mother Diabetes Hypertension Mother CAD (coronary artery disease) Father CAD (coronary artery disease) Social History Smoking and tobacco status: former smoker Quit status (tobacco): has quit using tobacco Year quit tobacco: 2000 Alcohol intake: current Alcohol intake frequency: holidays/special occasions only Alcohol type: wine Household members: spouse Marital status: Vitals/I&O/Wt Last Vital Signs Temp 98.7 F 09/17/20 16:00 Pulse 68 09/17/20 16:06 Resp 17 09/17/20 16:00 BP 144/76 09/17/20 16:00 Pulse Ox 89 L 09/17/20 16:06 09/17/20 09/17/20 09/17/20 06:59 14:59 22:59 Intake Total 1100 / 2450 1320 / 1320 Output Total 390 / 1050 500 / 500 Balance 710 / 1400 820 / 820 Physical Exam Narrative: EXAM NARRATIVE: Patient is conscious alert oriented X3 BMI 28.1 Head and neck examination PERRLA no masses no cervical lymphadenopathy no jaundice Cardiac examination audible S1-S2 no murmurs no gallops no arrhythmias Chest is clear bilateral,abscence of Rhonchi or wheezes,no surgical emphysema Abdomen nontender except mildly at the incision site nondistended soft no organomegaly guarding or rigidity/no signs of peritonitis Left-sided abdominal drain in place without complications and having serosanguineous output Urinary Catheter Management^: Montano: Cath Placed During This Visit: yes, but has since been removed by the nurse Urinary Catheter Date of Insertion: 09/16/20 Urinary Catheter Time of Insertion: 09:30 Date Urinary Catheter Removed: 09/16/20 Time Urinary Catheter Discontinued: 11:43 Hospital Course Hospital Course patient undergone uneventful laparoscopic explantation of gastric band and overall level an upper GI study that was performed the following day That showed The esophagus shows tertiary contractions. No reflux, mass, polyp, erosion or ulceration is seen. There is a hiatal hernia. The stomach shows normal mucosa with no ulcer, mass or deformity. No contrast leakage is seen. The duodenal bulb is normal with no ulceration. There are midline sternotomy sutures present. Patient was started on p.o. liquid and tolerated that well with patient's and have stable vital signs and good urine output. All medications were resumed and patient met the appropriate criteria for safe discharge home. Discharge Summary This is a pleasant 65 years old gentleman symptomatic with next implant related complications, undergone laparoscopic explantation of this implant with intraoperative esophagogastroscopy, following day patient undergone upper GI study that showed no evidence of leak or extravasation and maintained to have left upper quadrant abdominal drain with serosanguineous output. Tolerated p.o. intake and blood work as well as vital signs been appropriate. Patient was discharged home with specific education with regard to drain care and teaching. Plan to follow-up with me at the bariatric surgery office as scheduled. SSS Data Data Completed and Pending: Completed Studies During Hospitalization Category Date Time Status [place] [id number] Routine Exams 09/17/20 08:00 Completed Pending at discharge Category Date Time Status ES surgery / GI i mages Routine Exams 09/16/20 09:02 Taken Pathology: Surgic al [PTH] Routine Pth 09/16/20 11:45 Received Discharge Plan Discharge Patient Disposition: Home Condition: Stable Prescriptions: Continued potassium chloride [Klor-Con M20] 20 mEq tablet,ER particles/crystals 20 meq PO DAILY RF: 0 atorvastatin 80 mg tablet 80 mg PO DAILY RF: 0 furosemide 40 mg tablet 40 mg PO DAILY RF: 0 duloxetine 60 mg capsule, delayed rel sprinkle 60 mg PO DAILY RF: 0 nitroglycerin [Nitrostat] 0.4 mg tablet, sublingual 0.4 mg SUBLINGUAL Q5M PRN (Reason: Chest Pain) RF: 0 tamsulosin [Flomax] 0.4 mg capsule 0.8 mg PO DAILY RF: 0 lorazepam [Ativan] 0.5 mg tablet 0.5 mg PO TID PRN (Reason: Anxiety) RF: 0 trazodone 50 mg tablet 50 mg PO DAILY RF: 0 pantoprazole 40 mg tablet,delayed release (DR/EC) 40 mg PO DAILY RF: 0 metformin 500 mg tablet 1,000 mg PO BID RF: 0 allopurinol 300 mg tablet 300 mg PO DAILY RF: 0 losartan 100 mg tablet 100 mg PO DAILY RF: 0 empagliflozin 25 mg tablet 25 mg PO DAILY RF: 0 metoprolol tartrate 50 mg tablet 50 mg PO DAILY RF: 0 cholecalciferol (vitamin D3) 100 mcg (4,000 unit) capsule 100 mcg PO DAILY RF: 0 famotidine [Pepcid AC] 20 mg tablet 20 mg PO BID RF: 0 benzonatate 200 mg capsule 200 mg PO TID PRN (Reason: cough) Qty: 20 RF: 0 Held aspirin [Aspir-81] 81 mg tablet,delayed release (DR/EC) 81 mg PO DAILY RF: 0 Hold Instructions: Resume on 08/21/20. Discharge Orders: Discharge Order (Routine); Ordered 09/17/20 Ordered By: Paul Holland Referrals: Paul Holland MD [Physician] - (Return to surgery office in 2-week CALL FOR APPOINTMENT [phone]) Discharge Diet: As Directed Discharge Activity: Limit activity as instructed Patient Instructions: Full Liquid Diet, Clear Liquid Diet (GEN), Adjustable Gastric Banding (GEN), Opioid Safety, Soft Diet Activity Restrictions/Additional Instructions: 1. Patient can shower after 48 hours from surgery 2. Remove Band-Aids tomorrow and shower 3. Up and walking as tolerated 4. Do NOT lift more than 5 pounds first 2 weeks after surgery and not more than 25 pounds 6 to 8 weeks after surgery. 5. Do not operate heavy machinery or drive while using pain medications. 6.Contact the office or return to the ER for worsening nausea vomiting fevers or chills, or noticing any redness around incision sites or discharge. 7. Clear liquid diet today and tomorrow then following THAT advance to full liquid diet then slowly to soft GI diet. 8. Avoid straws Attestations Medical Necessity Statement*: Observation status Time Spent in Patient Care*: less than 30 min Specific Discharge Activities: Specific discharge activities: educating patient Status at Discharge: Cognitive status at discharge: cognitively intact, Behavioral status at discharge: cooperative, Functional status at discharge: independent ambulation Overall status at discharge: patient is progressing back to baseline Quality Metrics Clinical Quality Measures: During this hospital stay, did patient experience: None Coding Level of Care Code Acute Therapist Occupational for Antwan Haddad
[2020-09-17 18:49] VITALS: PULSE 68; O2SAT 89
== END 2020-09-17 16:30 | disposition home or self-care (01) ==
LOC: MEDSURG 12:08
PROVIDERS: Anesthesiology; Admitting Provider Surgery; PCP Emergency Medicine Emergency Medical Services; Visit Provider Surgery
PROC: 0DP64CZ Removal of Extraluminal Device from Stomach, Percutaneous Endoscopic Approach (ICD-10-PCS; CPT 43772; principal; 2020-09-16 08:45)
PROC: 0DJ08ZZ Inspection of Upper Intestinal Tract, Via Natural or Artificial Opening Endoscopic (ICD-10-PCS; CPT 43235; 2020-09-16 08:45)
DX: K21.9 Gastro-esophageal reflux disease without esophagitis (principal); Z98.84 Bariatric surgery status; Z79.82 Long term (current) use of aspirin; E13.9 Other specified diabetes mellitus without complications; Z79.84 Long term (current) use of oral hypoglycemic drugs; I48.91 Unspecified atrial fibrillation; E78.5 Hyperlipidemia, unspecified; G47.33 Obstructive sleep apnea (adult) (pediatric); Z87.891 Personal history of nicotine dependence
CPT/HCPCS: 43772; 36415; 36416; 43235; 74240; 80048; 82962; 85014; 85018; 88300; 88305; 96365; 96372; 96374; C9113; C9290; G0378; J0330; J0690; J1200; J1644; J1815; J2370; J2405; J2704; J2710; J3010; J3490; J7030; Q9963

== ENCOUNTER 2020-09-29 08:54 | Outpatient (CLI) | payer OTHER, MEDICARE, SELFPAY ==
--- NOTE | 2020-09-29 16:45 | MR_ITS ---
WS: [id number] MRI LEFT SHOULDER NONCONTRAST TECHNIQUE: Sagittal T2, coronal T1, T2 and proton density imaging. Axial gradient PDE imaging. CLINICAL INFORMATION: S46.912A - Strain of unspecified muscle, fascia and tendo... COMPARISON: None. FINDINGS: Mild degenerative arthritis at the AC joint. Subacromial spurring. Mild downsloping of the acromion. Degenerative narrowing at the glenohumeral joint. Small amount of subacromial/subdeltoid fluid. Mild edema at the AC joint. Mild chronic atrophy of the supraspinatus with Tendinopathy in the distal supraspinatus. High-grade insertional tear distal supr aspinatus. Normal infraspinatus. Normal teres minor. Normal subscapularis. Normal biceps tendon in the bicipital groove. Normal biceps labral anchor. Degenerative fraying of th e glenoid labrum. MR/MR shoulder LT wo con* [id number] IMPRESSION: 1. 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 Small amount of subacr omial/subdeltoid fluid. 2. Chronic thinning of the distal supraspinatus with high-grade insertional te ar. 3. Tendinopathy within the supraspinatus. 4. Normal infraspinatus and teres minor. Normal subscapularis. 5. Normal biceps tendon in the bicipital groove. Normal biceps labral anchor.
== END 2020-09-29 08:55 | disposition home or self-care (01) ==
LOC: RADSHAW 08:59
PROVIDERS: PCP Emergency Medicine Emergency Medical Services; Visit Provider Orthopaedic Surgery
DX: S46.912A Strain of unspecified muscle, fascia and tendon at shoulder and upper arm level, left arm, initial encounter (principal); X58.XXXA Exposure to other specified factors, initial encounter; M19.012 Primary osteoarthritis, left shoulder; R60.0 Localized edema; M75.102 Unspecified rotator cuff tear or rupture of left shoulder, not specified as traumatic
CPT/HCPCS: 73221

== ENCOUNTER 2020-10-29 07:32 | Outpatient (RCR) | payer OTHER, MEDICARE, SELFPAY | END 2020-11-15 23:59 | disposition home or self-care (01) | LOC: SPT 07:32 | PROVIDERS: PCP Emergency Medicine Emergency Medical Services; Referring Provider Orthopaedic Surgery; Visit Provider Orthopaedic Surgery | DX: M25.512 Pain in left shoulder (principal) | CPT/HCPCS: 97110; 97161 ==

== ENCOUNTER 2020-11-16 06:00 | Outpatient (RCR) | payer OTHER, MEDICARE, SELFPAY | END 2020-12-16 23:59 | disposition home or self-care (01) | LOC: SPT 06:00 | PROVIDERS: PCP Emergency Medicine Emergency Medical Services; Referring Provider Orthopaedic Surgery; Visit Provider Orthopaedic Surgery | DX: M25.512 Pain in left shoulder (principal) | CPT/HCPCS: 97110 ==

== ENCOUNTER → 2021-01-29 09:56 | Outpatient (BNVA) | payer OTHER, SELFPAY | PROVIDERS: PCP Emergency Medicine Emergency Medical Services; Referring Provider Internal Medicine; Visit Provider Internal Medicine | DX: I25.10 Atherosclerotic heart disease of native coronary artery without angina pectoris (principal); Z01.818 Encounter for other preprocedural examination; Z20.822 Contact with and (suspected) exposure to COVID-19; I10 Essential (primary) hypertension; E78.5 Hyperlipidemia, unspecified; E13.9 Other specified diabetes mellitus without complications; I48.91 Unspecified atrial fibrillation | CPT/HCPCS: 80048; 85025; 85610; 87635 ==

== ENCOUNTER 2021-02-04 08:48 | Observation (INO) | payer OTHER, SELFPAY ==
[2021-02-04] VITALS (36 sets, daily range): BP systolic 95–145; BP diastolic 63–89; PULSE 56–72; RESP 8–22; TEMP 36.4–36.9; O2SAT 95; BMI 30.2
[2021-02-04] MEDS: diphenhydrAMINE 50 mg Capsule PO (06:57)
--- NOTE | 2021-02-04 07:18 | W.PM.OPSUD ---
Surgery/Procedure H&P Update DATE OF PROCEDURE: February 04, 2021 DATE H&P PERFORMED: 01/13/21 H&P UPDATE INFORMATION: I have reviewed H&P completed within last 30 days, I have examined patient prior to procedure and No changes to prior documentation PREOP DIAGNOSIS: Worsening Dyspnea on exertion/ Angina equivalent PRIMARY INDICATION FOR PROCEDURE: Worsening dyspnea on exertion/ angina equivalent PLANNED PROCEDURE: Operation Date: 02/04/21 08:30 Proposed Procedures p Cardiac Catheterization(Left) - Placido Aguayo M.D Possible percutaneous coronary intervention PATIENT REASSESSED PRIOR TO SEDATION, WITH NO CHANGE NOTED: Yes PHYSICAL EXAM: alert, oriented x 3, clear to auscultation bilaterally and regular rate & rhythm AIRWAY EVAL/ANESTHESIA PLAN: ASA III, Monitored Anesthesia, Local Anesthesia, Risks, benefits & alternatives of sedation and/or procedure discussed and Patient agrees to continue as planned
--- NOTE | 2021-02-04 07:30 | XACV_ITS ---
Ht: 188 cm Wt: 104 kg BSA: 2.35 m2 Gender: Male : 1955 Any Known Allergies: No known allergies Exam Priority: Routine Procedure(s): Procedure Description: Diagnostic procedure Procedure Description: Left Heart Catheterization Procedure Description: Venous Graft Catheterization Procedure Description: CLEMENTS Graft Catheterization Procedure Description: Coronary Angiography Diagnostic Cath Status: Elective Diagnostic Findings * Left main artery has ostial mild disease. Proximal Left circumflex artery has a severe 90% proximal vessel stenosis. Mid LAD has moderate 30-40% stenosis. Diagonal artery is ostially occluded. Proximal RCA is occluded. CLEMENTS was not used as a graft and is atretic. SVG to RCA is aneurysmal and is patent. SVG to diagonal is patent. SVG to OM is patent.. * Coronary angiography shows right dominance. Conclusions 1. Left main artery has ostial mild disease. Proximal Left circumflex artery has a severe 90% proximal vessel stenosis. Mid LAD has moderate 30-40% stenosis. Diagonal artery is ostially occluded. Proximal RCA is occluded. CLEMENTS was not used as a graft and is atretic. SVG to RCA is aneurysmal and is patent. SVG to diagonal is patent. SVG to OM is patent.. Recommendations * Aggressive risk factor modification. * Outpatient cardiology follow up in 4 weeks. Interventional RX Recommendation: medical therapy and/or counseling Diagnostic RX Recommendation: medical therapy and/or counseling Pressures Phase:Rest AO : 116 / 70 ( 90 ) @ 6:39:00 AM 149 / 47 ( 85 ) @ 7:16:00 AM LV : 144 / -17 / 16 @ 7:16:00 AM Clinical Evaluation EBL: 5mL-10mL Procedural Details Procedure Consent Obtained. Pre-Procedure Time Out. Identified patient by full name and date of as verbalized by the patient/guarantor. Does the consent match the physician's order: Yes. Accurate & Complete Informed Consent: Yes. Inpatient/Outpatient History & Physical on Chart: Yes. If H&P is completed, is and addenduem needed: No; If yes, is the addendum complete: N/A. Visualize and Verify Site with Patient/Guarantor: N/A. Relevant Radiology Images available: Yes. Pre-op teaching completed and patient verbalized understanding. The risks, benefits, and alternatives of sedation and/or procedure were discussed by physician. The patient agrees to continue. Procedure started. [facility] Clinical Fraility Score: 3: Managing Well. 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 Chest Pain Symptom Assessment: Typical Angina Symptoms. Correct patient, site and procedure confirmed by cath team. Current diagnosis: Chest Pain. PERRLA. Strong, equal hand manager risk management bilaterally. Lungs clear x 5 lobes. Elena Kern RN circulating and Ganesh Rojas scrubbing. A 22 gauge IV was started in the right forearm using aseptic technique. IV Fluids: 0.9% NaCl at KVO. 0 mL infused prior to laboratory clerk. Pre Procedural Pulses: bilateral dorsalis pedis was 3+. Oxygen started at 2liters/min via nasal canula. Pre Procedural Pulses: bilateral posterior tibial was Doppled. Pre Procedural Pulses: bilateral radial was 3+. bilateral groins was prepped with chloroprep then draped in the usual sterile fashion. Baseline sample Acquired. HR: 57 BPM. Physician arrived. Physician scrubbed in. Immediate Pre-Procedure Time Out. Correct Patient: Yes; Correct Procedure: Yes; Correct Site: Yes; Correct Patient Position: Yes; Correct Supplies: Yes; Dried Flammable Prep: Yes; Blood Products Available: N/A;. Lidocaine 1% infiltrated to the right groin. Arterial access obtained with micropuncture set. A 5 qatari JL4 catheter in over wire. Catheter removed over the exchange wire. A 5 qatari JL5 catheter in over wire. Multiple views taken of left coronary artery. Catheter removed over the exchange wire. A 5 qatari JR4 catheter in over wire. Multiple views taken of right coronary artery. SVG's to RCA visualized and patent. Catheter removed over the exchange wire. A 5 qatari AL1 catheter in over wire. Catheter removed over the exchange wire. A 5 qatari IM catheter in over wire. CLEMENTS to LAD visualized. Catheter removed over the exchange wire. A 5 qatari AL1 catheter in over wire. SVG's to Diaganol visualized and patent. SVG's to OM visualized and patent. SVG's to RCA visualized and patent. Multiple views taken of right coronary artery. Catheter removed over the exchange wire. A 5 qatari JL5 catheter in over wire. Multiple views taken of left coronary artery. Catheter removed over the exchange wire. A 5 qatari JR4 catheter in over wire. Catheter removed over the exchange wire. A 5 qatari Angled Pig catheter in over wire. EDP Sample taken: LV 144/-18,16; HR: 66 BPM; SpO2: 96%. Pullback taken: LV Off; AO Off; Mean: , Peak to Peak: , SEP: ; HR: 61 BPM; SpO2: 94%. Catheter removed over the exchange wire. Sheath(s) sutured into position with 2-0 silk and sterile 4x4's and Op-site applied over the site. No oozing or signs and symptoms of hematoma noted. Arterial sheath flushed and connected to tranducer and pressure bag with heparinized saline. A Suture was successful obtaining hemostatsis at the Right Femoral artery insertion site. Post Procedure: Pulses reassessed and unchanged. PERRLA. Strong, equal hand manager risk management bilaterally. No VTE prophylaxis required. Medication's Wasted: Lidocaine 1% = 10 mL. Medication's Wasted: Heparin = 4000 units. Total IV fluids: 64 mL. Contrast type used: Omnipaque 300 mgI/mL, 500 mL bottle. Vital chart was stopped. Complications: None. Estimated blood loss: 5mL-10mL. Procedure completed. Patient transferred by bed to 1st floor. Access Site Site: Right Femoral artery Sheath Size: 6 Fr Hemostasis Method: Suture Hemostasis Success: Successful Procedure Medications Start: 7:26 AM Stop: 7:26 AM Medication: Versed Amount: 1 mg Route: I.V. Start: 7:26 AM Stop: 7:26 AM Medication: Fentanyl Amount: 50 mcg Route: I.V. Start: 7:34 AM Stop: 7:34 AM Medication: Versed Amount: 1 mg Route: I.V. Start: 7:50 AM Stop: 7:50 AM Medication: Heparin Amount: 2000 units Route: I.V. Start: 7:56 AM Stop: 7:56 AM Medication: Fentanyl Amount: 50 mcg Route: I.V. Start: 8:12 AM Stop: 8:12 AM Medication: Heparin Amount: 2000 units Route: I.V. I, the attending physician, have reviewed and verified all procedure medications. Yes, all medications given per verbal order History/Risk Factors Hypertension: Yes Dyslipidemia: Yes Peripheral Arterial Disease (PAD): No Myocardial Infarction (TN): No Obesity: No Renal Disease: No Prior Interventions PCI: No CABG: No Valve Surgery: No Report Signatures Finalized by Placido Aguayo MD on 02/19/2021 11:43 AM
--- NOTE | 2021-02-04 09:30 | PC.NURSE ---
Sheath pull went as planned pressure held for 20min with no hematoma formation upon releasing pressure a small hematoma noted Dr wood notified Dr hernandez to bedside instructions recieved to watch closely and notify provider of changes
--- NOTE | 2021-02-04 15:58 | PC.NURSE ---
Discharged with all belongings patient stable and alert accompanied by and staff to private vehicle
== END 2021-02-04 15:58 | disposition home or self-care (01) ==
LOC: CSU 08:48
PROVIDERS: Admitting Provider Internal Medicine; PCP Emergency Medicine Emergency Medical Services; Visit Provider Internal Medicine
DX: I25.119 Atherosclerotic heart disease of native coronary artery with unspecified angina pectoris (principal); R06.09 Other forms of dyspnea; I10 Essential (primary) hypertension; E13.9 Other specified diabetes mellitus without complications; G47.33 Obstructive sleep apnea (adult) (pediatric); E78.5 Hyperlipidemia, unspecified; I48.91 Unspecified atrial fibrillation; Z79.82 Long term (current) use of aspirin; Z95.1 Presence of aortocoronary bypass graft; Z87.891 Personal history of nicotine dependence
CPT/HCPCS: 36415; 93459; C1769; C1887; C1894; G0378; J1644; J2250; J3010; J7030; Q0163; Q9967

== ENCOUNTER → 2021-02-11 10:48 | Outpatient (BNVA) | payer OTHER, SELFPAY | PROVIDERS: PCP Emergency Medicine Emergency Medical Services; Visit Provider Nurse Practitioner Family | DX: I25.10 Atherosclerotic heart disease of native coronary artery without angina pectoris (principal) | CPT/HCPCS: 80048 ==

== ENCOUNTER → 2021-07-13 10:52 | Outpatient (BNVA) | payer OTHER, SELFPAY | PROVIDERS: PCP Emergency Medicine Emergency Medical Services; Visit Provider Internal Medicine Critical Care Medicine | DX: R06.02 Shortness of breath (principal); G47.33 Obstructive sleep apnea (adult) (pediatric); Z87.891 Personal history of nicotine dependence; K21.9 Gastro-esophageal reflux disease without esophagitis; I10 Essential (primary) hypertension; E78.5 Hyperlipidemia, unspecified; E13.8 Other specified diabetes mellitus with unspecified complications | CPT/HCPCS: 99213 ==

== ENCOUNTER 2021-07-30 06:51 | Outpatient (CLI) | payer OTHER, SELFPAY ==
--- NOTE | 2021-07-30 10:46 | PFTS_ITS ---
Date of Study:07/30/21 Date of Dictation: MECHANICS: Forced vital capacity (FVC) is reduced. Forced expiratory volume in one second (FEV1) is reduced. FEV1/FVC is reduced. FLOW VOLUME LOOP: Reduced flow at all lung volumes with significant scooping. LUNG VOLUMES: Total lung capacity (TLC) is normal. Residual volume (RV) is increased. DIFFUSING CAPACITY FOR CARBON MONOXIDE: Mild reduced. INTERPRETATION: The postbronchodilator spirometry is consistent with moderate airflow obstruction. There is a significant postbronchodilator response. Lung volumes are consistent with air trapping. Gas exchange (DLCO) is mildly reduced. MTDD
== END 2021-07-30 06:52 | disposition home or self-care (01) ==
LOC: RT 06:55
PROVIDERS: PCP Emergency Medicine Emergency Medical Services; Visit Provider Internal Medicine Critical Care Medicine
DX: R06.02 Shortness of breath (principal)
CPT/HCPCS: 94060; 94726; 94729; J7611

== ENCOUNTER → 2021-09-17 12:51 | Outpatient (BNVA) | payer OTHER, SELFPAY | PROVIDERS: PCP Emergency Medicine Emergency Medical Services; Visit Provider Internal Medicine | DX: I25.10 Atherosclerotic heart disease of native coronary artery without angina pectoris (principal); I10 Essential (primary) hypertension; I48.91 Unspecified atrial fibrillation; E13.9 Other specified diabetes mellitus without complications; E78.5 Hyperlipidemia, unspecified; G47.33 Obstructive sleep apnea (adult) (pediatric); Z87.891 Personal history of nicotine dependence; Z79.82 Long term (current) use of aspirin; Z79.84 Long term (current) use of oral hypoglycemic drugs | CPT/HCPCS: 99214 ==

== ENCOUNTER → 2022-01-14 09:32 | Outpatient (BNVA) | payer OTHER, SELFPAY | PROVIDERS: PCP Emergency Medicine Emergency Medical Services; Visit Provider Internal Medicine Critical Care Medicine | DX: J44.9 Chronic obstructive pulmonary disease, unspecified (principal); G47.33 Obstructive sleep apnea (adult) (pediatric); F32.A Depression, unspecified; U09.9 Post COVID-19 condition, unspecified; Z87.891 Personal history of nicotine dependence; Z95.1 Presence of aortocoronary bypass graft; Z91.19 Patient's noncompliance with other medical treatment and regimen | CPT/HCPCS: 99214 ==

== ENCOUNTER 2022-02-10 11:44 | Outpatient (CLI) | payer OTHER, SELFPAY ==
--- NOTE | 2022-02-10 | US_ITS ---
WS: [id number] RENAL ULTRASOUND HISTORY: CKD STAGE 3B COMPARISON: None available. TECHNIQUE: 2-D and color Doppler imaging of the kidney submitted. Right kidney: 10.9 cm x 4.5 cm x 6.6 cm. Normal echogenicity with no hydronephrosis or mass. Left kidney: 11.8 cm x 6.4 cm x 4.6 cm. Normal echogenicity with no hydronephrosis or mass.Cortical cyst mid kidney measures 16 x 15 x 12 mm. Aorta: Normal. Urinary Bladder: Normal distention. US/US renal BI* [id number] IMPRESSION: 1. No hydronephrosis or solid renal mass. 2. Cortical cyst mid LEFT kidney, maximum diameter 16 mm.
== END 2022-02-10 11:45 | disposition home or self-care (01) ==
PROVIDERS: PCP Emergency Medicine Emergency Medical Services; Visit Provider Internal Medicine Nephrology
DX: N18.32 Chronic kidney disease, stage 3b (principal); N28.1 Cyst of kidney, acquired
CPT/HCPCS: 76770

== ENCOUNTER → 2022-03-19 09:51 | Outpatient (BNVA) | payer OTHER, SELFPAY | PROVIDERS: PCP Emergency Medicine Emergency Medical Services; Visit Provider Internal Medicine | DX: I10 Essential (primary) hypertension (principal); E13.9 Other specified diabetes mellitus without complications; Z79.84 Long term (current) use of oral hypoglycemic drugs; E78.5 Hyperlipidemia, unspecified; G47.33 Obstructive sleep apnea (adult) (pediatric); I25.10 Atherosclerotic heart disease of native coronary artery without angina pectoris; I48.91 Unspecified atrial fibrillation; Z87.891 Personal history of nicotine dependence | CPT/HCPCS: 99214 ==

== ENCOUNTER 2022-04-05 14:49 | Outpatient (RCR) | payer OTHER, SELFPAY | END 2022-04-17 23:59 | disposition home or self-care (01) | LOC: PULRHB 14:49 | PROVIDERS: PCP Emergency Medicine Emergency Medical Services; Visit Provider Emergency Medicine Emergency Medical Services | DX: J44.9 Chronic obstructive pulmonary disease, unspecified (principal); U09.9 Post COVID-19 condition, unspecified | CPT/HCPCS: 94626 ==

== ENCOUNTER 2022-04-18 06:00 | Outpatient (RCR) | payer OTHER, SELFPAY | END 2022-05-18 23:59 | disposition home or self-care (01) | LOC: PULRHB 06:00 | PROVIDERS: PCP Emergency Medicine Emergency Medical Services; Visit Provider Emergency Medicine Emergency Medical Services | DX: J44.9 Chronic obstructive pulmonary disease, unspecified (principal); U09.9 Post COVID-19 condition, unspecified | CPT/HCPCS: 94626 ==

== ENCOUNTER 2022-05-19 06:00 | Outpatient (RCR) | payer OTHER, SELFPAY | END 2022-06-15 23:59 | disposition home or self-care (01) | LOC: PULRHB 06:00 | PROVIDERS: PCP Emergency Medicine Emergency Medical Services; Visit Provider Emergency Medicine Emergency Medical Services | DX: J44.9 Chronic obstructive pulmonary disease, unspecified (principal); U09.9 Post COVID-19 condition, unspecified | CPT/HCPCS: 94626 ==

== ENCOUNTER 2022-06-16 06:00 | Outpatient (RCR) | payer OTHER, SELFPAY | END 2022-07-16 23:59 | disposition home or self-care (01) | LOC: PULRHB 06:00 | PROVIDERS: PCP Emergency Medicine Emergency Medical Services; Visit Provider Emergency Medicine Emergency Medical Services | DX: J44.9 Chronic obstructive pulmonary disease, unspecified (principal); U09.9 Post COVID-19 condition, unspecified | CPT/HCPCS: 94625; 94626 ==

== ENCOUNTER → 2022-07-14 08:12 | Outpatient (BNVA) | payer OTHER, SELFPAY | PROVIDERS: PCP Emergency Medicine Emergency Medical Services; Visit Provider Internal Medicine Pulmonary Disease | DX: J44.9 Chronic obstructive pulmonary disease, unspecified (principal); F32.A Depression, unspecified; G47.33 Obstructive sleep apnea (adult) (pediatric); Z87.891 Personal history of nicotine dependence; Z95.1 Presence of aortocoronary bypass graft | CPT/HCPCS: 99214 ==

== ENCOUNTER → 2022-09-20 14:59 | Outpatient (BNVA) | payer OTHER, SELFPAY | PROVIDERS: PCP Emergency Medicine Emergency Medical Services; Visit Provider Internal Medicine | DX: I25.10 Atherosclerotic heart disease of native coronary artery without angina pectoris (principal); R06.02 Shortness of breath; E13.9 Other specified diabetes mellitus without complications; I10 Essential (primary) hypertension; E78.5 Hyperlipidemia, unspecified; G47.33 Obstructive sleep apnea (adult) (pediatric); I48.91 Unspecified atrial fibrillation; Z87.891 Personal history of nicotine dependence; Z79.84 Long term (current) use of oral hypoglycemic drugs; Z79.82 Long term (current) use of aspirin | CPT/HCPCS: 99214 ==

== ENCOUNTER 2022-10-14 08:35 | Outpatient (CLI) | payer OTHER, SELFPAY ==
--- NOTE | 2022-10-14 09:15 | USCV_ITS ---
Fuentes Gambino Age: 67 Gender: M : 1955 Exam Date: 10/14/2022 09:00 Ordering Phys: Placido Aguayo M.D ([email or web address]) Technologist: Gen Smith [place] [facility] [place]: murmur BP: / HR: 72 Rhythm: Sinus Technical Quality: Adequate MEASUREMENTS (Male / Female) Normal Values 2D ECHO LV Diastolic Diameter PLAX 3.2 cm 4.2 - 5.9 / 3.9 - 5.3 cm LV Systolic Diameter PLAX 2.5 cm IVS Diastolic Thickness 1.3 cm 0.6 - 1.0 / 0.6 - 0.9 cm IVS Systolic Thickness 1.5 cm LVPW Diastolic Thickness 1.1 cm 0.6 - 1.0 / 0.6 - 0.9 cm LVPW Systolic Thickness 1.5 cm LVOT Diameter 3.3 cm LV Ejection Fraction 2D Teich 39.5 % LV Ejection Fraction MOD 2C 57.9 % LV Ejection Fraction 2C AL 57.6 % LA Diameter 4.9 cm M-MODE LV Diastolic Diameter MM 4.4 cm 4.2 - 5.9 / 3.9 - 5.3 cm LV Systolic Diameter MM 3.3 cm LV Ejection Fraction MM Teich 48.3 % IVS Diastolic Thickness MM 1.4 cm 0.6 - 1.0 / 0.6 - 0.9 cm IVS Systolic Thickness MM 2.0 cm LVPW Diastolic Thickness MM 1.4 cm 0.6 - 1.0 / 0.6 - 0.9 cm LVPW Systolic Thickness MM 1.8 cm RV Diastolic Diameter MM 2.8 cm Aortic Annulus Diameter 4.3 cm LA Ao Ratio MM 1.3 MV E Point Septal Separation 1.3 cm DOPPLER AV Peak Velocity 140.0 cm/s LVOT Peak Velocity 101.0 cm/s AV Area Cont Eq vti 7.0 cm squared AV Area Cont Eq pk 6.3 cm squared MV Area PHT 3.2 cm squared Mitral E to A Ratio 0.7 MV E' Velocity 32.5 cm/s Mitral E to MV E' Ratio 5.6 Mitral E to LV E' Lateral Ratio 5.1 Mitral E to LV E' Septal Ratio 6.3 TR Peak Velocity 138.0 cm/s TR Peak Gradient 7.6 mmHg TV Peak E Velocity 79.0 cm/s Right Atrial Pressure 3.0 mmHg Pulmonary Artery Systolic Pressu 10.6 mmHg RV Acceleration Time 0.1 s FINDINGS Left Ventricle Left ventricle is normal in size. LV systolic function is normal with EF of 55 to 60%. No regional wall motion abnormalities are seen. Grade 1 diastolic dysfunction. Right Ventricle Normal in size and function Right Atrium Normal in size Left Atrium Normal in size Mitral Valve Grossly normal. Aortic Valve Aortic valve is thickened. No significant stenosis. Mild aortic regurgitation. Tricuspid Valve Mild tricuspid regurgitation.Insufficient TR jet to calculate RVSP Pulmonic Valve Not well visualized Pericardium Normal Aorta Normal in size IVC Appears to be normal CONCLUSIONS LV systolic function is normal with EF of 55 to 60%. Grade 1 diastolic dysfunction Mild aortic regurgitation Mild tricuspid regurgitation Compared to prior echocardiogram from 2020, no significant changes are seen. Placido Aguayo MD (Electronically Signed) Final Date: 17 October 2022 15:13 S
== END 2022-10-14 08:36 | disposition home or self-care (01) ==
PROVIDERS: PCP Emergency Medicine Emergency Medical Services; Visit Provider Internal Medicine
DX: I50.30 Unspecified diastolic (congestive) heart failure (principal); I35.1 Nonrheumatic aortic (valve) insufficiency; I07.1 Rheumatic tricuspid insufficiency
CPT/HCPCS: 93306

== ENCOUNTER → 2023-03-28 13:19 | Outpatient (BNVA) | payer OTHER, SELFPAY | PROVIDERS: PCP Emergency Medicine Emergency Medical Services; Visit Provider Internal Medicine | DX: E13.9 Other specified diabetes mellitus without complications (principal); Z79.84 Long term (current) use of oral hypoglycemic drugs; I10 Essential (primary) hypertension; E78.5 Hyperlipidemia, unspecified; G47.33 Obstructive sleep apnea (adult) (pediatric); I25.10 Atherosclerotic heart disease of native coronary artery without angina pectoris; I48.91 Unspecified atrial fibrillation; Z87.891 Personal history of nicotine dependence | CPT/HCPCS: 99214 ==

== ENCOUNTER → 2023-04-07 09:12 | Outpatient (BNVA) | payer OTHER, SELFPAY | PROVIDERS: PCP Emergency Medicine Emergency Medical Services; Visit Provider Internal Medicine Pulmonary Disease | DX: J43.2 Centrilobular emphysema (principal); G47.33 Obstructive sleep apnea (adult) (pediatric); F32.A Depression, unspecified; Z12.2 Encounter for screening for malignant neoplasm of respiratory organs | CPT/HCPCS: 99214 ==

== ENCOUNTER → 2023-09-27 13:45 | Outpatient (BNVA) | payer OTHER, SELFPAY | PROVIDERS: PCP Emergency Medicine Emergency Medical Services; Visit Provider Internal Medicine | DX: I25.10 Atherosclerotic heart disease of native coronary artery without angina pectoris (principal); E13.9 Other specified diabetes mellitus without complications; I10 Essential (primary) hypertension; E78.5 Hyperlipidemia, unspecified; G47.33 Obstructive sleep apnea (adult) (pediatric); I48.91 Unspecified atrial fibrillation; Z87.891 Personal history of nicotine dependence; Z79.84 Long term (current) use of oral hypoglycemic drugs | CPT/HCPCS: 99214 ==

== ENCOUNTER → 2024-04-03 14:20 | Outpatient (BNVA) | payer OTHER, SELFPAY | PROVIDERS: PCP Emergency Medicine Emergency Medical Services; Visit Provider Internal Medicine | DX: I10 Essential (primary) hypertension (principal); E13.9 Other specified diabetes mellitus without complications; E78.5 Hyperlipidemia, unspecified; G47.33 Obstructive sleep apnea (adult) (pediatric); I25.10 Atherosclerotic heart disease of native coronary artery without angina pectoris; I48.91 Unspecified atrial fibrillation; Z87.891 Personal history of nicotine dependence; Z79.84 Long term (current) use of oral hypoglycemic drugs | CPT/HCPCS: 99213 ==

== ENCOUNTER → 2024-06-21 10:16 | Outpatient (BNVA) | payer OTHER, SELFPAY | PROVIDERS: PCP Emergency Medicine Emergency Medical Services; Visit Provider Orthopaedic Surgery | DX: S22.009A Unspecified fracture of unspecified thoracic vertebra, initial encounter for closed fracture (principal); X58.XXXA Exposure to other specified factors, initial encounter; M54.9 Dorsalgia, unspecified | CPT/HCPCS: 72072; 99203 ==

== ENCOUNTER 2024-06-26 15:30 | Outpatient (CLI) | payer OTHER, SELFPAY ==
--- NOTE | 2024-06-26 16:00 | MR_ITS ---
WS: [id number] MRI THORACIC SPINE noncontrast HISTORY: back pain COMPARISON: 06/21/2024 radiograph, prior CTA 05/06/2020 TECHNIQUE: Multiplanar sequences are performed in sagittal and axial planes. Mild increase in the thoracic kyphosis. Mild anterior wedging of T3 and T4 as noted on the recent radiograph. Minimal increased T2 signal in the superior endplate of T4. No retropulsion of either vertebral body. Numerous Schmorl's nodes defects are identified. Remote L1 compression fracture. Disc spaces are narrowed throughout the thoracic spine with no cord compression. T1-2: Central disc protrusion and bilateral facet arthritis. T2-3: Small central disc protrusion and moderate facet arthritis. Mild foraminal stenosis. T3-4: Small central disc protrusion and bilateral facet arthritis. Mild foraminal stenosis. T4-5: Mild facet arthritis. T5-6: Mild facet arthritis. T6-7: Normal. T7-8: Mild facet arthritis. T8-9: Mild bilateral foraminal stenosis. T9-10: Mild facet joint arthritis and foraminal stenosis. T10-11: Mild disc bulging with moderate facet arthritis and mild foraminal stenosis. T11-12: Mild facet arthritis. MR/MR thoracic spin wo con* [id number] IMPRESSION: 1. Mild anterior wedging of T3 and T4 by approximately 10%. 2. Questionable minimal intermediate signal within T4. Subacute of recent trab ecular injury not excluded. There is no retropulsion of the vertebral body. 3. Remote L1 compression fracture. 4. Multilevel facet joint arthritis. Several small central disc protrusions as above.
== END 2024-06-26 15:31 | disposition home or self-care (01) ==
PROVIDERS: Visit Provider Orthopaedic Surgery
DX: M48.04 Spinal stenosis, thoracic region (principal); M48.54XA Collapsed vertebra, not elsewhere classified, thoracic region, initial encounter for fracture; R93.7 Abnormal findings on diagnostic imaging of other parts of musculoskeletal system; M48.56XA Collapsed vertebra, not elsewhere classified, lumbar region, initial encounter for fracture; M40.294 Other kyphosis, thoracic region; M51.44 Schmorl's nodes, thoracic region; M51.24 Other intervertebral disc displacement, thoracic region; M47.894 Other spondylosis, thoracic region; M51.34 Other intervertebral disc degeneration, thoracic region
CPT/HCPCS: 72146

== ENCOUNTER → 2024-07-03 14:45 | Outpatient (BNVA) | payer OTHER, SELFPAY | PROVIDERS: Visit Provider Orthopaedic Surgery | DX: S22.049A Unspecified fracture of fourth thoracic vertebra, initial encounter for closed fracture (principal); X58.XXXA Exposure to other specified factors, initial encounter | CPT/HCPCS: 99213 ==

== ENCOUNTER → 2024-07-11 07:12 | Outpatient (BNVA) | payer OTHER, SELFPAY | PROVIDERS: PCP Nurse Practitioner; Visit Provider Student in an Organized Health Care Education/Training Program | DX: M65.332 Trigger finger, left middle finger (principal) | CPT/HCPCS: 73130; 99204 ==

== ENCOUNTER → 2024-08-02 13:15 | Outpatient (BNVA) | payer OTHER, SELFPAY | PROVIDERS: PCP Nurse Practitioner; Visit Provider Orthopaedic Surgery | DX: S22.000A Wedge compression fracture of unspecified thoracic vertebra, initial encounter for closed fracture (principal); X58.XXXA Exposure to other specified factors, initial encounter | CPT/HCPCS: 72072; 99213 ==

== ENCOUNTER 2024-08-24 06:59 | Day surgery (SDC) | payer OTHER, SELFPAY ==
[2024-08-24] VITALS (8 sets, daily range): BP systolic 99–150; BP diastolic 58–97; PULSE 51–63; RESP 18–20; TEMP 36.3–37.6; O2SAT 94–96
--- NOTE | 2024-08-24 07:24 | ECG_ITS ---
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1955 Requested By: Matheus Giraldo Order Number: [id number] Reading MD: KASSANDRA GRAJEDA Measurements Intervals [place] Rate: 58 P: 110 OK: 267 QRS: 41 QRSD: 89 T: 78 QT: 401 QTc: 396 Interpretive Statements SINUS BRADYCARDIA WITH FIRST DEGREE AV BLOCK NONSPECIFIC T-WAVE ABNORMALITY Compared to ECG 05/06/2020 14:52:26 First degree AV block now present Sinus rhythm no longer present Ventricular premature complex(es) no longer present T-wave abnormality still present Electronically Signed On 08-25-2024 16:26:20 CDT by KASSANDRA GRAJEDA [email or web address]
[2024-08-24 07:25] LABS: Glucose Point of Care 128 mg/dL (70-110)
[2024-08-24] MEDS: acetaminophen 1,000 MG/100 ML PIGGYBACK 400 MG IV (07:31)
[2024-08-24] MEDS: sodium chloride 0.9% 1,000 ML 30 ML IV (07:31)
[2024-08-24] MEDS: scopolamine 1 mg PATCH 1 PATCH TRANSDERMA (07:34)
[2024-08-24] MEDS: ketorolac 30 mg/mL INJ IVP (07:35)
[2024-08-24 07:43] LABS: Blood Urea Nitrogen 16 mg/dL (8-23); Calcium 8.9 mg/dL (8.5-10.5); Carbon Dioxide 28 mmol/L (22-29); Chloride 103 mmol/L (98-107); Creatinine Clr Calc Pharmacy 87.2566; Glucose 141 mg/dL (65-115); Osmolality Calculated 296 mOsm/kg (285-295); Sodium 141 mmol/L (136-145)
--- NOTE | 2024-08-24 07:54 | ANES.PREANE2 ---
Pre-Anesthetic Assessment Height/Weight: Height 1.88 m Weight 104.326 kg Temp Pulse Resp BP Pulse Ox O2 Del Method 98.0 F 55 L 18 146/97 95 Room Air 08/24/24 07:06 08/24/24 07:06 08/24/24 07:06 08/24/24 07:06 08/24/24 07:06 08/24/24 07:09 Operation Date: 08/24/24 09:05 Proposed Procedures p left middle finger trigger release(Left) - Matheus Giraldo DO Last intake: Intake Last Liquid Date 08/23/24 Last Liquid Time 20:00 Last Solid Date 08/23/24 Last Solid Time 16:00 Social Tobacco and No alcohol Exam alert, oriented x 3, clear to auscultation bilaterally and regular rate & rhythm Airway Submandibular: within normal limits Cervical ROM: within normal limits Mallampati: Class II Pulmonary Chronic Obstructive Pulmonary Disease and Sleep Apnea CV/HEM Atrial Fibrillation, Coronary Artery Disease and Hypertension GI Gastroesophageal Reflux Disease Metabolic Diabetes Mellitus Anesthetic Plan ASA status: 3 Anesthesia: MAC Medications/Allergies Home Medications ?Medication ?Instructions ?Recorded ?Confirmed ?Last Taken ?Type allopurinol 300 mg tablet 300 mg PO DAILY 10/16/19 08/23/24 08/23/24 History aspirin 81 mg tablet,delayed 81 mg PO DAILY 10/16/19 08/23/24 08/22/24 09:00 History release (Aspir-) atorvastatin 80 mg tablet 80 mg PO DAILY 10/16/19 08/23/24 08/23/24 History furosemide 40 mg tablet 40 mg PO DAILY 10/16/19 08/23/24 08/23/24 History nitroglycerin 0.4 mg sublingual 0.4 mg sublingual Q5M PRN Chest 10/16/19 08/23/24 08/23/24 History tablet (Nitrostat) Pain pantoprazole 40 mg tablet,delayed 20 mg PO DAILY 10/16/19 08/23/24 08/23/24 History release potassium chloride 20 mEq 20 meq PO DAILY 10/16/19 08/23/24 08/23/24 History tablet,extended release(part/cryst) (Klor-Con M) tamsulosin 0.4 mg capsule (Flomax) 0.8 mg PO DAILY 10/16/19 08/23/24 08/23/24 History trazodone 50 mg tablet 50 mg PO DAILY 10/16/19 08/23/24 08/23/24 History cholecalciferol (vitamin D3) 100 100 mcg PO DAILY 06/27/20 08/23/24 08/23/24 History mcg (4,000 unit) capsule famotidine 20 mg tablet (Pepcid AC) 20 mg PO BID 08/21/20 08/23/24 08/23/24 History empagliflozin 25 mg tablet 25 mg PO DAILY 07/13/21 08/23/24 08/23/24 History (Jardiance) amlodipine 5 mg tablet 10 mg PO DAILY 03/19/22 08/23/24 08/23/24 History metoprolol tartrate 25 mg tablet 25 mg PO BID #180 tabs 03/19/22 08/23/24 08/23/24 Rx duloxetine 60 mg capsule,delayed 80 mg PO DAILY 09/20/22 08/23/24 08/23/24 History release sprinkle metformin 500 mg tablet 1,000 mg PO BID 04/07/23 08/23/24 08/23/24 History glipizide 10 mg tablet 20 mg PO BID 09/27/23 08/23/24 08/23/24 History albuterol sulfate 90 mcg/actuation 2 puff inhalation Q6H PRN 10/06/23 08/23/24 08/23/24 Rx aerosol inhaler shortness of breath or wheezing 30 days #8.5 grams budesonide 160 mcg-glycopyr 9 2 inh inhalation BID 30 days #10.7 10/06/23 08/23/24 08/23/24 Rx mcg-formot 4.8 mcg/actuation HFA grams inhaler (Breztri Aerosphere) sitagliptin phosphate 25 mg tablet 25 mg PO DAILY 04/03/24 08/23/24 08/23/24 History (Januvia) Allergies Allergy/AdvReac Type Severity Reaction Status Date / Time No Known Allergies Allergy Verified 08/24/24 07:38 Current Medications Generic Name Dose Route Start Last Admin Trade Name Freq PRN Reason Stop Dose Admin Sodium Chloride 1,000 mls @ 30 mls/hr 08/24/24 07:15 08/24/24 07:31 Sodium Chloride 0.9% IV 08/25/24 07:14 30 mls/hr .Q24H KENTRELL Administration PFSH Anesthesia Medical History COPD (chronic obstructive pulmonary disease) Complication of gastric banding HTN (hypertension) GERD (gastroesophageal reflux disease) Atrial fibrillation Diabetes 1.5, managed as type 2 Hyperlipidemia COREY (obstructive sleep apnea) ASHD (arteriosclerotic heart disease) Surgical History History of laparoscopic adjustable gastric banding Family History Mother Diabetes Hypertension Mother CAD (coronary artery disease) Father CAD (coronary artery disease) Social History Smoking and tobacco/nicotine status: unknown if used tobacco/nicotine Quit status (tobacco/nicotine): has quit using Year quit tobacco: 2000 Former quit date comment: started at age 15 years, 2 ppd, quit 2000 Alcohol intake: current Alcohol intake frequency: few times a week Alcohol type: wine Substance/Drug Use: never Household members: spouse Marital status: Data Anesthesia 08/24/24 07:16 BMP 08/24/24 07:16 Sodium 141 Potassium 4.0 Chloride 103 Carbon Dioxide 28 BUN 16 Creatinine 1.0 Glucose 141 H Calcium 8.9 Cardiac Studies: Echocardiogram 10/14/22 Echocardiogram Ultrasound 07/18/20 Cardiac Event Monitor 04/08/23
--- NOTE | 2024-08-24 09:57 | W.PM.OPSFHP ---
Same Day Surgery H&P Indication for Procedure/HPI DATE OF PROCEDURE: August 24, 2024 CHIEF COMPLAINT/INDICATIONFOR SURGICAL PROCEDURE: Left middle finger trigger PREOP DIAGNOSIS: Left middle finger trigger PLANNED PROCEDURE: Operation Date: 08/24/24 09:05 Proposed Procedures p left middle finger trigger release(Left) - Matheus Giraldo, DO Medications/Allergies* Home Medications ?Medication ?Instructions ?Recorded ?Confirmed ?Type allopurinol 300 mg tablet 300 mg PO DAILY 10/16/19 08/23/24 History aspirin 81 mg tablet,delayed 81 mg PO DAILY 10/16/19 08/23/24 History release (Aspir-) atorvastatin 80 mg tablet 80 mg PO DAILY 10/16/19 08/23/24 History furosemide 40 mg tablet 40 mg PO DAILY 10/16/19 08/23/24 History nitroglycerin 0.4 mg sublingual 0.4 mg sublingual Q5M PRN Chest 10/16/19 08/23/24 History tablet (Nitrostat) Pain pantoprazole 40 mg tablet,delayed 20 mg PO DAILY 10/16/19 08/23/24 History release potassium chloride 20 mEq 20 meq PO DAILY 10/16/19 08/23/24 History tablet,extended release(part/cryst) (Klor-Con M) tamsulosin 0.4 mg capsule (Flomax) 0.8 mg PO DAILY 10/16/19 08/23/24 History trazodone 50 mg tablet 50 mg PO DAILY 10/16/19 08/23/24 History cholecalciferol (vitamin D3) 100 100 mcg PO DAILY 06/27/20 08/23/24 History mcg (4,000 unit) capsule famotidine 20 mg tablet (Pepcid AC) 20 mg PO BID 08/21/20 08/23/24 History empagliflozin 25 mg tablet 25 mg PO DAILY 07/13/21 08/23/24 History (Jardiance) amlodipine 5 mg tablet 10 mg PO DAILY 03/19/22 08/23/24 History duloxetine 60 mg capsule,delayed 80 mg PO DAILY 09/20/22 08/23/24 History release sprinkle metformin 500 mg tablet 1,000 mg PO BID 04/07/23 08/23/24 History glipizide 10 mg tablet 20 mg PO BID 09/27/23 08/23/24 History sitagliptin phosphate 25 mg tablet 25 mg PO DAILY 04/03/24 08/23/24 History (Januvia) Allergies/Adverse Reactions Allergy/AdvReac Type Severity Reaction Status Date / Time No Known Allergies Allergy Verified 08/24/24 07:38 Current Medications: Generic Name Dose Route Start Last Admin Trade Name Chayo PRN Reason Stop Dose Admin Sodium Chloride 1,000 mls @ 30 mls/hr 08/24/24 07:15 08/24/24 07:31 Sodium Chloride 0.9% IV 08/25/24 07:14 30 mls/hr .Q24H KENTRELL Administration Pertinent History/Comorbid Conditions* Medical History (Updated 06/21/24 @ 11:14 by Venu Lu DO) COPD (chronic obstructive pulmonary disease) Complication of gastric banding HTN (hypertension) GERD (gastroesophageal reflux disease) Atrial fibrillation Diabetes 1.5, managed as type 2 Hyperlipidemia COREY (obstructive sleep apnea) ASHD (arteriosclerotic heart disease) Surgical History (Updated 07/17/20 @ 08:28 by Paul Holland MD) History of laparoscopic adjustable gastric banding Family History (Updated 10/16/19 @ 10:25 by Devika Hardin RN) Diabetes Mother CAD (coronary artery disease) Mother Father Hypertension Mother Social History Smoking and tobacco/nicotine status: unknown if used tobacco/nicotine Quit status (tobacco/nicotine): has quit using Year quit tobacco: 2000 Former quit date comment: started at age 15 years, 2 ppd, quit 2000 Alcohol intake: current Alcohol intake frequency: few times a week Alcohol type: wine Substance/Drug Use: never Household members: spouse Marital status: Pertinent Exam Findings alert, oriented x 3, operative site marked and procedure specific exam findings Please refer to detail orthopedic examination on 07/11/2024 listed below: Trigger Finger Exam: -Negative Tinel's at wrist -Negative Tinel's at elbow -Negative median nerve compression test -Good thenar strength, no appreciable atrophy -Good intrinsic strength, no atrophy noted -When making a fist decreased ROM of left middle finger -TTP over A1 cuate of left middle finger with mechanical triggering and catching noted -No TTP over remaining digit A1 cuate's -Positive CMC grind test -Mild TTP over CMC joint Recommendations Risks and benefits of procedure reviewed and Patient/family agree to proceed Surgery/Procedure today Other Plans: Plan to proceed to the OR today for left middle finger trigger release. Patient understands the ins and outs procedure the risk benefits complication alternatives surgery and through shared decision make elects proceed with surgical invention. All questions answered at this time. Will proceed to the OR today for left middle finger trigger release. Coding Level of Care Code Acute Code for Chg Fwd
[2024-08-24] MEDS: ceFAZolin 2,000 MG in sodium chloride 0.9% (plus) 50 ML 100 MG IV (10:08)
[2024-08-24] MEDS: ROPivacaine 0.5% SDV 30 mL 150 MG INJECTION (10:26)
[2024-08-24] MEDS: lidocaine 1% 10 ML INJ XX (10:26)
--- NOTE | 2024-08-24 10:38 | W.PM.BPON ---
Date of Procedure: 08/24/2024 Surgeon: Matheus Giraldo DO [place] Operator(s): None Procedure(s) performed: Left middle finger trigger release Findings of the procedure(s): Underwent procedure as planned without issues or complications Estimated blood loss: 2 mL Specimen(s) removed: None Post-operative diagnosis: Left middle finger trigger
--- NOTE | 2024-08-24 10:39 | PM.OP ---
Operative Report Date of procedure: August 24, 2024 Surgeon: Matheus Giraldo DO Procedure: Preoperative diagnosis: Left middle finger trigger Post-op diagnosis: Same Procedure done: Left?middle finger?trigger?release Surgeon: Matheus Giraldo DO Estimated blood loss: 2 cc Tourniquet time 8 mins Complications: None Condition: stable Disposition: same day Brief History: Patient's been seen and worked up in the outpatient setting and findings consistent with preoperative diagnosis of Left?middle finger?trigger.? He is failed conservative treatment.? Continues to have mechanical locking and catching.? Severe pain as well.? We talked about treatment options nonoperative versus operative intervention.? ?Patient understands the risk benefits complication alternatives of surgical nonsurgical treatment options.? Understanding his risks with surgery he elects proceed with surgical intervention.? Consent obtained in the preoperative holding area.? Here today to proceed with surgical intervention for left middle finger trigger release all questions answered. Procedure: Patient was seen and evaluated in the preoperative holding area.? Consent was reviewed and signed with patient.? Seen evaluated by Anesthesia Department.? Once cleared for surgery was brought back to the operative suite.? Placed in supine position on the OR table all bony prominences well-padded patient properly secured to the bed.? Patient's Left arm was then placed to the armboard.? A nonsterile tourniquet applied to the Left upper arm.? Patient's Left upper extremity was then prepped and draped in standard orthopedic fashion.? Final timeout performed.? Patient received appropriate preoperative antibiotics. Esmarch tourniquet was used exsanguinate the Left upper extremity tourniquet insufflated to 250 mmHg. Under sterile aseptic technique local digital block was performed to the Left?middle finger.? Once appropriately anesthetized a standard oblique incision was made centering over the A1 cuate following patient's flexor crease.? Sharp scalpel incision was made only through skin and then switched to Littler dissection scissors and spread longitudinally directly over the flexor tendon sheath.? I then mobilized both radially and ulnarly and Kasdan retractors were used and placed by my speech language pathology assistant to protect neurovascular bundle.? Next I visualized the A1 cuate and this was incised with a scalpel.? I then switched to dissection scissors and released the A1 cuate both proximally as well as distally to its entirety.? Significant tendon sheath fluid was noted consistent with inflammation.? Mild fraying of the flexor tendons noted but no tear.? At this point I utilized a rag nail and pulled the tendons FDS and FDP out of the incision and no?triggering was noted.? I then had anesthesia wake up the patient and patient was able to actively flex and extend with no?triggering.? This point thorough irrigation was performed.? Tourniquet deflated hemostasis satisfactory with bipolar.? I then subsequently closed the incision with interrupted nylon suture.? Xeroform 4 x 4's, Kerlix and an Nemesio wrap was applied for a bulky soft dressing.? Patient was then subsequently awakened from anesthesia and taken to PACU in stable condition tolerated procedure without issues. Disposition: Patient taken back in stable condition recovering well.? Patient will receive appropriate discharge instruction as well as pain medication postoperatively.? Patient to follow-up with me in the office in 2 weeks for repeat evaluation and incision check.? Patient understands that any questions or concerns and contact the office.? All questions answered.
--- NOTE | 2024-08-24 12:35 | ANE.PACU2 ---
Inpatient post-anesthesia follow up: Airway intact: Yes Vital signs: Temperature 97.4 F Pulse Rate 51 Respiratory Rate 18 Blood Pressure 149/83 Pulse Oximetry 96 Oxygen Delivery Me thod Room Air Oxygen Flow Rate Fraction of Inspir ed Oxygen Hydration adequate: Yes Nausea and vomiting: No Pain level: controlled Mental status: Baseline
== END 2024-08-24 11:31 | disposition home or self-care (01) ==
PROVIDERS: Anesthesiology; PCP Nurse Practitioner; Visit Provider Student in an Organized Health Care Education/Training Program
PROC: (CPT 26055; principal; 2024-08-24 09:05)
DX: M65.332 Trigger finger, left middle finger (principal); I25.10 Atherosclerotic heart disease of native coronary artery without angina pectoris; J44.9 Chronic obstructive pulmonary disease, unspecified; I10 Essential (primary) hypertension; K21.9 Gastro-esophageal reflux disease without esophagitis; I48.91 Unspecified atrial fibrillation; E78.5 Hyperlipidemia, unspecified; G47.33 Obstructive sleep apnea (adult) (pediatric); E13.9 Other specified diabetes mellitus without complications; Z87.891 Personal history of nicotine dependence; Z79.899 Other long term (current) drug therapy; Z79.82 Long term (current) use of aspirin; Z79.84 Long term (current) use of oral hypoglycemic drugs; Z79.85 Long-term (current) use of injectable non-insulin antidiabetic drugs
CPT/HCPCS: 26055; 36415; 36416; 80048; 82962; 93005; J0131; J0690; J1885; J2704; J2795; J3010; J3490; J7030; J9999

== ENCOUNTER → 2024-08-30 08:05 | Outpatient (BNVA) | payer OTHER, SELFPAY | PROVIDERS: PCP Nurse Practitioner; Visit Provider Orthopaedic Surgery | DX: M54.9 Dorsalgia, unspecified (principal) | CPT/HCPCS: 72072; 99213 ==

== ENCOUNTER → 2024-09-05 09:09 | Outpatient (BNVA) | payer OTHER, SELFPAY | PROVIDERS: PCP Nurse Practitioner; Visit Provider Physician Assistant | DX: Z98.890 Other specified postprocedural states (principal) | CPT/HCPCS: 99024 ==

== ENCOUNTER → 2025-01-01 12:12 | Outpatient (BNVA) | payer OTHER, SELFPAY | PROVIDERS: PCP Family Medicine Geriatric Medicine; Visit Provider Internal Medicine | DX: I25.10 Atherosclerotic heart disease of native coronary artery without angina pectoris (principal); I10 Essential (primary) hypertension; I48.91 Unspecified atrial fibrillation; R06.02 Shortness of breath | CPT/HCPCS: 36415; 80048; 83880; 99214 ==

== ENCOUNTER 2025-01-10 15:11 | Emergency (ER) | payer OTHER, SELFPAY ==
[2025-01-10 15:12] VITALS: BP 159/79; PULSE 58; RESP 14; TEMP 36.9; O2SAT 96; BMI 32.1
[2025-01-10 15:26] VITALS: BP 127/71; PULSE 67; RESP 17; O2SAT 96
[2025-01-10 15:30] LABS: Hematocrit 48.5 % (37-53); Hemoglobin 16.10 g/dL (11.27-16.99); Mean Corpuscular HGB Conc 33.2 g/dL (30-55); Mean Corpuscular Hemoglobin 32.1 pg (27-33); Mean Corpuscular Volume 96.6 fl (82-101); Nucleated Red Blood Cells % 0 %; Platelet Count 149 10^3/cmm (157-399); Red Blood Count 5.02 10^6/uL (3.85-5.65); White Blood Count 7.41 10^3/uL (3.29-11.43)
--- NOTE | 2025-01-10 15:47 | W.ED.SYNCOPE ---
HPI - Syncope General: Chief Complaint: Syncope Stated Complaint: SYNCOPE Time Seen by Provider: 01/10/25 15:12 History of Present Illness: 69-year-old man with a history of COPD, hypertension, gastric banding, GERD, atrial fibrillation, diabetes, hyperlipidemia, obstructive sleep apnea and coronary artery disease who presents emergency room by ambulance from [facility] after having a near syncopal episode. They report his blood pressure was a little bit low there. Occurred when he tried to stand up. Blood pressure is improved on arrival here. He was being seen in follow-up for previously diagnosed pneumonia. He says he has resolved with that. He says he feels good today. No chest pain. No abdominal pain. No nausea or vomiting. Related Data Home Medications ?Medication ?Instructions ?Recorded ?Confirmed allopurinol 300 mg tablet 300 mg PO DAILY 10/16/19 01/01/25 aspirin 81 mg tablet,delayed 81 mg PO DAILY 10/16/19 01/01/25 release (Aspir-) atorvastatin 80 mg tablet 80 mg PO DAILY 10/16/19 01/01/25 furosemide 40 mg tablet 40 mg PO DAILY 10/16/19 01/01/25 nitroglycerin 0.4 mg sublingual 0.4 mg sublingual Q5M PRN Chest 10/16/19 01/01/25 tablet (Nitrostat) Pain potassium chloride 20 mEq 20 meq PO DAILY 10/16/19 01/01/25 tablet,extended release(part/cryst) (Klor-Con M) tamsulosin 0.4 mg capsule (Flomax) 0.8 mg PO DAILY 10/16/19 01/01/25 trazodone 50 mg tablet 50 mg PO DAILY 10/16/19 09/05/24 cholecalciferol (vitamin D3) 100 100 mcg PO DAILY 06/27/20 01/01/25 mcg (4,000 unit) capsule famotidine 20 mg tablet (Pepcid AC) 20 mg PO BID 08/21/20 01/01/25 empagliflozin 25 mg tablet 25 mg PO DAILY 07/13/21 01/01/25 (Jardiance) amlodipine 5 mg tablet 10 mg PO DAILY 03/19/22 01/01/25 duloxetine 60 mg capsule,delayed 80 mg PO DAILY 09/20/22 01/01/25 release sprinkle metformin 500 mg tablet 1,000 mg PO BID 04/07/23 01/01/25 glipizide 10 mg tablet 20 mg PO BID 09/27/23 01/01/25 sitagliptin phosphate 25 mg tablet 25 mg PO DAILY 04/03/24 01/01/25 (Dakotauvia) [id number] tablet tab PO DAILY 01/01/25 01/01/25 pantoprazole 40 mg tablet,delayed 40 mg PO DAILY 01/01/25 01/01/25 release Previous Rx's ?Medication ?Instructions ?Recorded metoprolol tartrate 25 mg tablet 25 mg PO BID #180 tabs 03/19/22 albuterol sulfate 90 mcg/actuation 2 puff inhalation Q6H PRN 10/06/23 aerosol inhaler shortness of breath or wheezing 30 days #8.5 grams budesonide 160 mcg-glycopyr 9 2 inh inhalation BID 30 days #10.7 10/06/23 mcg-formot 4.8 mcg/actuation HFA grams inhaler (Breztri Aerosphere) Allergies Allergy/AdvReac Type Severity Reaction Status Date / Time No Known Allergies Allergy Verified 01/01/25 12:35 Review of Systems Narrative: Constitutional symptoms: Negative except as documented in HPI. Skin symptoms: Negative except as documented in HPI. Eye symptoms: Negative except as documented in HPI. ENMT symptoms: Negative except as documented in HPI. Respiratory symptoms: Negative except as documented in HPI. Cardiovascular symptoms: Negative except as documented in HPI. Gastrointestinal symptoms: Negative except as documented in HPI. Genitourinary symptoms: Negative except as documented in HPI. Musculoskeletal symptoms: Negative except as documented in HPI. Neurologic symptoms: Negative except as documented in HPI. Psychiatric symptoms: Negative except as documented in HPI. Endocrine symptoms: Negative except as documented in HPI. PFSH ED PFSH: Medical History (Updated 01/10/25 @ 16:29 by Claire Meek MD) COPD (chronic obstructive pulmonary disease) Complication of gastric banding HTN (hypertension) GERD (gastroesophageal reflux disease) Atrial fibrillation Diabetes 1.5, managed as type 2 Hyperlipidemia COREY (obstructive sleep apnea) ASHD (arteriosclerotic heart disease) Surgical History History of laparoscopic adjustable gastric banding Family History Mother Diabetes Hypertension Mother CAD (coronary artery disease) Father CAD (coronary artery disease) Social History Smoking and tobacco/nicotine status: former use of tobacco/nicotine Quit status (tobacco/nicotine): has quit using Year quit tobacco: 2000 Former quit date comment: started at age 15 years, 2 ppd, quit 2000 Alcohol intake: current Alcohol intake frequency: few times a week Alcohol type: wine Substance/Drug Use: never Household members: spouse Marital status: Physical Exam Narrative: EXAM NARRATIVE: General: Alert, no acute distress. Skin: Warm, dry. Head: Normocephalic, atraumatic. Neck: Supple, trachea midline. Eye: Extraocular movements are intact. Ears, nose, mouth and throat: mucosa moist. Cardiovascular: Regular, Normal peripheral perfusion. Respiratory: Lungs are clear to auscultation, respirations are non-labored, breath sounds are equal, Symmetrical chest wall expansion. Gastrointestinal: Soft, Nontender, Non distended Musculoskeletal: Normal ROM, no deformity. Neurological: Alert and oriented, No focal neurological deficit observed. Psychiatric: Cooperative, appropriate mood & affect. Course Vital Signs: Vital signs: Vital Signs Temperature 98.4 F 01/10/25 15:12 Pulse Rate 73 01/10/25 15:55 Respiratory Rate 14 01/10/25 15:12 Blood Pressure 128/71 01/10/25 15:55 Pulse Oximetry 96 01/10/25 15:12 Oxygen Delivery Me thod Room Air 01/10/25 15:12 MDM - Syncope Medical Decision Making Medical decision making: Differential diagnosis including but not limited to and based on the above HPI, review of systems and physical exam in this patient with near syncope: Vasovagal, orthostatics hypotension, cardiac dysrhythmia, myocardial infarction, infection and hypotension, Orders placed to evaluate differential diagnosis based on the above differential, HPI and physical exam Chest x-ray: No acute process. No infiltrate. No pneumothorax. This was reviewed and interpreted by myself the emergency room physician. I also reviewed the radiology report. Lab Review: Laboratory results were reviewed and interpreted by myself the emergency room physician. No leukocytosis. No anemia. No renal failure. Troponin negative. I reviewed the patient's medical record. Reexamination: Patient remained stable. No increased work of breathing. No altered mental status. No focal motor deficits. Patient did not tilt with orthostatics. Assessment and plan: Near syncope - Discharged home - Discussed plan with patient. Answered any questions. - Evaluation and treatment of this problem were appropriate in the emergency setting. Lab Data 01/10/25 15:00 01/10/25 15:00 Radiology Impressions Chest X-Ray 01/10/25 15:48 IMPRESSION: 1. Mild cardiac enlargement. No acute process. Laboratory Results WBC 7.41 10^3/uL (3.29-11.43) 01/10/25 15:00 RBC 5.02 10^6/uL (3.85-5.65) 01/10/25 15:00 Hgb 16.10 g/dL (11.27-16.99) 01/10/25 15:00 Hct 48.5 % (37-53) 01/10/25 15:00 MCV 96.6 fl (82-101) 01/10/25 15:00 MCH 32.1 pg (27-33) 01/10/25 15:00 MCHC 33.2 g/dL (30-55) 01/10/25 15:00 RDW 14.2 % (12.1-15.1) 01/10/25 15:00 Plt Count 149 10^3/cmm (157-399) L 01/10/25 15:00 MPV 9.8 fL (7.4-10.4) 01/10/25 15:00 Neut % (Auto) 64.8 % 01/10/25 15:00 Lymph % (Auto) 25.4 % 01/10/25 15:00 [place] % (Auto) 7.3 % 01/10/25 15:00 Eos % (Auto) 1.5 % 01/10/25 15:00 Baso % (Auto) 0.3 % 01/10/25 15:00 Neut # (Auto) 4.81 10^3/uL (1.8-7.7) 01/10/25 15:00 Lymph # (Auto) 1.9 10^3/uL (0.8-4.8) 01/10/25 15:00 [place] # (Auto) 0.5 10^3/uL (0.2-0.9) 01/10/25 15:00 Eos # (Auto) 0.1 10^3/uL (0.0-0.8) 01/10/25 15:00 Baso # (Auto) 0.0 10^3/uL (0.0-0.1) 01/10/25 15:00 Nucleated RBC % (auto) 0 % 01/10/25 15:00 Nucleated RBCs # 0.0 /100WBC 01/10/25 15:00 Sodium 139 mmol/L (136-145) 01/10/25 15:00 Potassium 4.2 mmol/L (3.5-5.1) 01/10/25 15:00 Chloride 100 mmol/L (98-107) 01/10/25 15:00 Carbon Dioxide 26 mmol/L (22-29) 01/10/25 15:00 Anion Gap 17.2 (5-19) 01/10/25 15:00 BUN 17 mg/dL (8-23) 01/10/25 15:00 Creatinine 1.1 mg/dL (0.7-1.2) 01/10/25 15:00 GFR Calculation Not Reportable 01/10/25 15:00 Glucose 166 mg/dL (65-115) H 01/10/25 15:00 Calculated Osmolality 293 mOsm/kg (285-295) 01/10/25 15:00 Lactic Acid 2.0 mmol/L (0.5-2.2) 01/10/25 15:22 Calcium 9.4 mg/dL (8.5-10.5) 01/10/25 15:00 Total Bilirubin 0.7 mg/dL (0.15-1.2) 01/10/25 15:00 AST 14 U/L (0-40) 01/10/25 15:00 ALT 19 U/L (0-41) 01/10/25 15:00 Alkaline Phosphatase 132 U/L (40-130) H 01/10/25 15:00 Troponin T Baseline 15 ng/L (0-15) 01/10/25 15:00 NT-Pro-B Natriuret Pep 171 pg/mL (0-125) H 01/10/25 15:00 Total Protein 6.7 g/dL (6.6-8.7) 01/10/25 15:00 Albumin 4.4 g/dL (3.5-5.2) 01/10/25 15:00 Globulin 2.3 g/dL (1.3-4.6) 01/10/25 15:00 All radiology interpretation(s) finalized by discharge Discharge Plan Discharge Patient Disposition: Home Clinical Impression: Near syncope Condition: Stable Prescriptions: No Action potassium chloride [Klor-Con M20] 20 mEq tablet,ER particles/crystals 20 meq PO DAILY atorvastatin 80 mg tablet 80 mg PO DAILY aspirin [Aspir-81] 81 mg tablet,delayed release (DR/EC) 81 mg PO DAILY furosemide 40 mg tablet 40 mg PO DAILY nitroglycerin [Nitrostat] 0.4 mg tablet, sublingual 0.4 mg SUBLINGUAL Q5M PRN (Reason: Chest Pain) Rx Instructions: do not exceed 3 doses per episode tamsulosin [Flomax] 0.4 mg capsule 0.8 mg PO DAILY trazodone 50 mg tablet 50 mg PO DAILY allopurinol 300 mg tablet 300 mg PO DAILY Jardiance 25 mg tablet 25 mg PO DAILY duloxetine 60 mg capsule, delayed rel sprinkle 80 mg PO DAILY metformin 500 mg tablet 1,000 mg PO BID pantoprazole 40 mg tablet,delayed release (DR/EC) 40 mg PO DAILY cholecalciferol (vitamin D3) 100 mcg (4,000 unit) capsule 100 mcg PO DAILY famotidine [Pepcid AC] 20 mg tablet 20 mg PO BID glipizide 10 mg tablet 20 mg PO BID amlodipine 5 mg tablet 10 mg PO DAILY metoprolol tartrate 25 mg tablet 25 mg PO BID Qty: 180 3RF Januvia 25 mg tablet 25 mg PO DAILY [id number] Tablet PO DAILY albuterol sulfate 90 mcg/actuation HFA aerosol inhaler 2 puff inhalation Q6H PRN (Reason: shortness of breath or wheezing) 30 Days Qty: 8.5 6RF Breztri Aerosphere 160-9-4.8 mcg/actuation HFA aerosol inhaler 2 inh inhalation BID 30 Days Qty: 10.7 6RF Discharge Orders: Discharge ED (Routine); Ordered 01/10/25 Ordered By: Claire Meek Referrals: Gelacio Velazco MD [Primary Care Provider, Family Practice] Patient Instructions: Near Syncope (ED), Opioid Safety, Pain Management, Patient Portal & Namita Instructions Activity Restrictions/Additional Instructions: Thank you for choosing [facility] for your healthcare needs today. You have been screened and evaluated and felt safe for discharge. Health conditions do change or evolve sometimes and as such it is important that you follow up with your Primary Doctor to be re checked, 3-5 days is a general good time frame for follow up. You are always welcome to return to the ED for re assessment if your symptoms are worsening or you have new concerns Print Language: Arabic Coding Level of Care Code ED Extender for Antwan Haddad
--- NOTE | 2025-01-10 15:48 | XR_ITS ---
WS: [id number] Exam: XR chest 1V portable [id number] Date/Time of Exam: 01/10/2025 3:48 PM Reason For Exam: Weakness Comparison 08/17/2023. Lungs are fully expanded and clear. Mild cardiac enlargement unchanged. No pleural effusion. Bony structures are intact. Signs of median sternotomy and CABG surgery. XR/XR chest 1V portable [id number] IMPRESSION: 1. Mild cardiac enlargement. No acute process.
[2025-01-10 15:52] LABS: Troponin(5th) Baseline 15 ng/L (0-15)
[2025-01-10 15:53] LABS: Lactic Sepsis W/Reflex 2.0 mmol/L (0.5-2.2)
[2025-01-10 15:55] VITALS: BP 127/71; BP 128/71; BP 128/80; PULSE 60; PULSE 69; PULSE 73
[2025-01-10 16:00] VITALS: BP 129/73; PULSE 58; RESP 16; O2SAT 95
[2025-01-10 16:14] LABS: Alanine Aminotransferase 19 U/L (0-41); Albumin Level 4.4 g/dL (3.5-5.2); Alkaline Phosphatase 132 U/L (40-130); Anion Gap 17.2 (5-19); Aspartate Amino Transferase 14 U/L (0-40); Blood Urea Nitrogen 17 mg/dL (8-23); Calcium 9.4 mg/dL (8.5-10.5); Carbon Dioxide 26 mmol/L (22-29); Chloride 100 mmol/L (98-107); Creatinine Clr Calc Pharmacy 82.4857; Globulin 2.3 g/dL (1.3-4.6); Glucose 166 mg/dL (65-115); NT Pro B Type Natriuretic Pept 171 pg/mL (0-125); Osmolality Calculated 293 mOsm/kg (285-295); Potassium 4.2 mmol/L (3.5-5.1); Sodium 139 mmol/L (136-145); Total Protein 6.7 g/dL (6.6-8.7)
--- OUTSIDE RECORDS SUMMARY | 2025-01-10 16:37 | XMS_ITS | Clinical Summary ---
Author Organization [facility], [facility] Address [address] [place] [address] Phone Care Team Providers Care Rehabilitation Services Director Name Role Phone Roseline Car NP Primary Care Provider [phone] Allergies No known active allergies Medications allopurinol (ZYLOPRIM) 300 MG tablet Take 300 mg by mouth 1 (one) time each day Active aspirin (ST NITA) 81 MG EC tablet Take 81 mg by mouth 1 (one) time each day Active atorvastatin (LIPITOR) 80 MG tablet Take 80 mg by mouth 1 (one) time each day Active cholecalciferol (VITAMIN D-3) 50 MCG (1999 UT) tablet Take 2,000 Units by mouth 1 (one) time each day Active DULoxetine (CYMBALTA) [address] capsule Take 80 mg by mouth 1 (one) time each day Do not crush or chew. Active Empagliflozin (Jardiance) 25 MG tablet Take 25 mg by mouth Active famotidine (PEPCID) 20 MG tablet Take 20 mg by mouth in the morning and 20 mg in the evening. Active furosemide (LASIX) 40 MG tablet Take 40 mg by mouth 1 (one) time each day Active meloxicam (MOBIC) 15 MG tablet Take 15 mg by mouth 1 (one) time each day if needed Active metoprolol tartrate 25 MG tablet Take 25 mg by mouth in the morning and 25 mg in the evening. Active pantoprazole (PROTONIX) 20 MG EC tablet Take 20 mg by mouth 1 (one) time each day before breakfast Do not crush, chew, or split. Active potassium chloride 10 MEQ CR tablet Take 10 mEq by mouth in the morning and 10 mEq in the evening. Do not crush, chew, or split. . Active tamsulosin (FLOMAX) 0.4 MG 24 hr capsule Take 0.4 mg by mouth 1 (one) time each day Active traZODone (DESYREL) 50 MG tablet Take 50 mg by mouth every night Active metFORMIN XR (GLUCOPHAGE-XR) 500 MG 24 hr tablet Take 1,000 mg by mouth in the morning and 1,000 mg in the evening. 2 Active glipiZIDE (GLUCOTROL) 10 MG tablet Take 20 mg by mouth in the morning and 20 mg in the evening. Take before meals. Active albuterol HFA (PROVENTIL HFA;VENTOLIN HFA) 108 (90 Base) MCG/ACT inhaler Inhale 2 puffs every 6 (six) hours if needed for wheezing Active amLODIPine (NORVASC) 10 MG tablet Take 1 tablet (10 mg total) by mouth 1 (one) time each day 90 tablet 3 2 Active Budeson-Glycopy rrol-Formoterol (Breztri Aerosphere) 160-9-4.8 MCG/ACT aerosol Inhale Acti ve Alogliptin Benzoate 12.5 MG tablet Take 1 tablet by mouth daily Active folic acid (FOLVITE) 1 MG tablet Take 1 mg by mouth 1 (one) time each day 4 Active fluticasone (FLONASE) 50 MCG/ACT nasal spray Administer 1 spray into each nostril 1 (one) time each day 4 Active SITagliptin (JANUVIA) 25 MG tablet Take 25 mg by mouth 1 (one) time each day Active Active Problems Problem Noted Date Diagnosed Date Stage 3b chronic kidney disease 11/26/2021 Type 2 diabetes mellitus wit h other diabetic kidney complication 11/26/2021 Essential (primary) hypertension 11/26/2021 Congestive heart failure 11/26/2021 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 11/26/2021 Encounters Date Type Department Care Team Description 12/19/2024 Documentation Only [facility] [address] [place] [address] Marcia Vargas MA 12/14/2024 Results Follow-Up [facility] [address] [place] [address] Camasse, Judy 12/14/2024 Documentation Only [facility], [facility] [address] [place] [address] Marcia Vargas MA 12/13/2024 Documentation Only [facility], [facility] [address] [place] [address] CamJudy meza 12/13/2024 Documentation Only [facility], [facility] [address] [place] [address] Camasse, Judy 12/11/2024 9:40 AM CDT Office Visit [facility], [address] [address] Nahomi Edward MD Chronic kidney disease stage 2 (Primary Dx); Type 2 diabetes mellitus with diabetic chronic kidney disease (HCC); Hypertensive chronic kidney disease with stage 1 through stage 4 chronic kidney disease, or unspecified chronic kidney disease 12/11/2024 Documentation Only [facility], [address] [address] Judy Doss 12/07/2024 Documentation Only [facility], [facility] [address] [place] [address] Deena Bazan MA 12/05/2024 Telephone [facility], [facility] [address] [place] [address] Deena Bazan MA 11/19/2024 Orders Only [facility], [facility] [address] [place] [address] Judy Doss Chronic kidney disease stage 3A (HCC) (Primary Dx) 11/19/2024 Telephone [facility], [facility] [address] [place] [address] Nahomi Edward MD from Last 3 Months Family History Medical History Relation Comments Diabetes Father Heart disease Father Hypertension Father Diabetes Mother Heart disease Mother Hypertension Mother Relation Status Comments Father Mother Social History Tobacco Use Types Packs/Day Years Used Date Smoking Tobacco: Former Cigarettes Q uit: 2000 Smokeless Tobacco: Never Tobacco Cessation:Counseling Given: Not Answered Alcohol Use Standard Drinks/Week Comments Yes 0 (1 standard drink = 0.6 oz pur e alcohol) 1-2 monthly Sex and Gender Information Value Date Recorded Sex Assigned at Not on file Legal Sex Male 10:53 AM EST Gender Identity Not on file Sexual Orientation Not on file Last Filed Vital Signs Vital Sign Reading Time Taken Comments Blood Pressure 130/84 12/11/2024 9:40 AM CDT Pulse 78 12/11/2024 9:40 AM CDT Temperature - - Respiratory Rate - - Oxygen Saturation 95% 12/11/2024 9:40 AM CDT Inhaled Oxygen Concentration - - Weight 109 kg (240 lb 9.6 oz) 12/11/2024 9:40 AM CDT Height 188 cm (6' 2 ) 12/11/2024 9:40 AM CDT Body Mass Index 30.89 12/11/2024 9:40 AM CDT Plan of Treatment Health Maintenance Due Date Last Done Comments Pneumococcal Vaccine: 50+ Ye ars (1 of 2 - PCV) 1972 Colorectal Cancer Screening: Annual FOBT 2002 Colorectal Cancer Screening: Colonoscopy 2002 Colorectal Cancer Screening: Sigmoidoscopy 2002 Diabetes: Hemoglobin A1C 05/27/2021 Diabetes: Ophthalmology Exam 05/27/2021 Diabetes: Pedal Pulse Checked 05/27/2021 Diabetes: Sensory Foot Exam 05/27/2021 Diabetes: Visual Foot Exam 05/27/2021 Influenza Vaccine (#1) 2024 Hepatitis B Vaccine Aged Out No longe r eligible based on patient's age to complete this topic Procedures Procedure Name Priority Date/Time Associated Diagnosis Comments URINE ALBUMIN / CREATININE RATIO Routine 12/06/2024 8:59 AM CDT Chronic kidney disease stage 3A (HCC) CBC Routine 12/06/2024 8:59 AM CDT Chronic kidney disease stage 3A (HCC) RENAL FUNCTION PANEL Routine 12/06/2024 8:59 AM CDT Chronic kidney disease stage 3A (HCC) from Last 3 Months Results * Urine Albumin / Creatinine Ratio (12/06/2024 8:59 AM CDT) Pathologist [facility] Albumin, Urine <5.00 mg/L PRINT /EXTERNAL (NON-INTERFACE D LABS) Creatinine, Urine Random 16.40 mg/dL PRINT/EXTERNAL (NON-INTERFACE D LABS) Urine Urine specimen obtained by clean catch procedure / Unknown 12/06/2024 8:59 AM CDT Narrative PRINT/EXTERNAL (NON-INTERFACED LABS) - 12/14/2024 11:12 AM CDT Performing Lab: [facility] [CLIA# [id number]] [address] [place] [address] Nahomi Edward MD LAB URINE ORDERABLES Final Re sult PRINT/EXTERNAL (NON-INTERFACED LABS) * CBC (12/06/2024 8:59 AM CDT) Pathologist [facility] WBC 9.2 K/uL PRINT/EXTE RNAL (NON-INTERFACE D LABS) Red Blood Cell Count 4.85 PRINT/EXTERNAL (NON-INTERFACE D LABS) Hemoglobin 15.9 g/dL PRINT/EXT ERNAL (NON-INTERFACE D LABS) Hematocrit 47.2 % PRINT/EXT ERNAL (NON-INTERFACE D LABS) MCV 97.3 PRINT/EXTE RNAL (NON-INTERFACE D LABS) MCH 32.8 PRINT/EXTE RNAL (NON-INTERFACE D LABS) MCHC 33.7 PRINT/EXTE RNAL (NON-INTERFACE D LABS) RDW 14.0 PRINT/EXTE RNAL (NON-INTERFACE D LABS) Platelet Count 158.0 PRINT /EXTERNAL (NON-INTERFACE D LABS) MPV 10.1 PRINT/EXTE RNAL (NON-INTERFACE D LABS) Absolute Neutrophils 6.73 PRINT/EXTERNAL (NON-INTERFACE D LABS) Absolute Lymphocytes 1.58 PRINT/EXTERNAL (NON-INTERFACE D LABS) Absolute Monocytes 0.69 PRINT/EXTERNAL (NON-INTERFACE D LABS) Absolute Eosinophils 0.10 PRINT/EXTERNAL (NON-INTERFACE D LABS) Absolute Basophils 0.04 PRINT/EXTERNAL (NON-INTERFACE D LABS) Neutrophils 73.3 K/uL PRINT/EX TERNAL (NON-INTERFACE D LABS) Lymphocytes 17.2 PRINT/EX TERNAL (NON-INTERFACE D LABS) Monocytes 7.5 PRINT/EXTE RNAL (NON-INTERFACE D LABS) Eosinophils 1.1 PRINT/EX TERNAL (NON-INTERFACE D LABS) Basophils 0.4 PRINT/EXTE RNAL (NON-INTERFACE D LABS) Blood Venous blood / Unknown 12/06/2024 8:59 AM CDT Narrative PRINT/EXTERNAL (NON-INTERFACED LABS) - 12/14/2024 11:12 AM CDT Performing Lab: [facility] [CLIA# [id number]] [address] [place] [address] [place] Nahomi Edward MD LAB BLOOD ORDERABLES Final Re sult PRINT/EXTERNAL (NON-INTERFACED LABS) * Renal Function Panel (12/06/2024 8:59 AM CDT) Glucose 190.0 mg/dL PRINT/EXTE RNAL (NON-INTERFACE D LABS) BUN 21.0 mg/dL PRINT/EXTE RNAL (NON-INTERFACE D LABS) Creatinine 1.10 mg/dL PRINT/EXT ERNAL (NON-INTERFACE D LABS) Sodium 140 mEq/L PRINT/EXTE RNAL (NON-INTERFACE D LABS) Potassium 3.6 mEq/L PRINT/EXTE RNAL (NON-INTERFACE D LABS) Chloride 104.0 PRINT/EXTE RNAL (NON-INTERFACE D LABS) Carbon Dioxide 27.0 mmol/L PRINT /EXTERNAL (NON-INTERFACE D LABS) Calcium 8.9 mg/dL PRINT/EXTE RNAL (NON-INTERFACE D LABS) eGFR 72.0 PRINT/EXTE RNAL (NON-INTERFACE D LABS) Blood Venous blood / Unknown 12/06/2024 8:59 AM CDT Narrative PRINT/EXTERNAL (NON-INTERFACED LABS) - 12/14/2024 11:12 AM CDT Performing Lab: [facility] [CLIA# [id number]] [address] [address] [place] Nahomi Edward MD LAB BLOOD ORDERABLES Final Re sult PRINT/EXTERNAL (NON-INTERFACED LABS) from Last 3 Months Insurance [facility] [employer] 1,2,3 ([employer]) Care Teams Rehabilitation Services Director Relationship Specialty Start Date End Date Roseline Car NP [address] [place] [address] PCP - General 12/05/24
--- OUTSIDE RECORDS SUMMARY | 2025-01-10 16:37 | XMS_ITS | Encounter Summary ---
Author Organization [facility] Address [address] [facility] [address] [place] [address] Phone Care Team Providers Care Crown Assembly Machine Set Up Mechanic Name Role Phone Roseline Car NP Primary Care Provider [phone] Encounter Details Date Type Department Care Team (Late st Contact Info) Description 05/27/2021 Orders Only Thu [facility] [address] [facility] [address] [place] [address] Type 2 diabetes mellitus with diabetic chronic kidney disease (HCC) Social History Tobacco Use Types Packs/Day Years Used Date Smoking Tobacco: Never Assessed Sex and Gender Information Value Date Recorded Sex Assigned at Not on file Legal Sex Male 10:53 AM EST Gender Identity Not on file Sexual Orientation Not on file documented as of this encounter Plan of Treatment Not on file documented as of this encounter Visit Diagnoses Diagnosis Type 2 diabetes mellitus with diabetic chronic kidney disease (HCC) documented in this encounter Care Teams [employer] Machine Set Up Mechanic Relationship Specialty Start Date End Date Roseline Car NP [address] [place] [id number] PCP - General 12/05/24 documented as of this encounter
--- OUTSIDE RECORDS SUMMARY | 2025-01-10 16:37 | XMS_ITS | Encounter Summary ---
Author Organization [facility] Address [address] [place] [address] Phone Care Team Providers Care Vice President Of Nursing Name Role Phone Roseline Car NP Primary Care Provider [phone] Encounter Details Date Type Department Care Team (Late st Contact Info) Description 12/14/2024 Results Follow-Up [facility] [address] [place] [address] Judy Doss [address] [place] [address] Social History Tobacco Use Types Packs/Day Years Used Date Smoking Tobacco: Former Cigarettes Q uit: 2000 Smokeless Tobacco: Never Alcohol Use Standard Drinks/Week Comments Yes 0 (1 standard drink = 0.6 oz pur e alcohol) 1-2 monthly Sex and Gender Information Value Date Recorded Sex Assigned at Not on file Legal Sex Male 10:53 AM EST Gender Identity Not on file Sexual Orientation Not on file documented as of this encounter Progress Notes * Judy Doss - 12/14/2024 11:18 AM CDT Post [facility] lab documented in this encounter Plan of Treatment Not on file documented as of this encounter Visit Diagnoses Not on filedocumented in this encounter Care Teams Vice President Of Nursing Relationship Specialty Start Date End Date Roseline Car NP [address] [facility] [place] [address] PCP - General 12/05/24 documented as of this encounter
[2025-01-10 16:45] VITALS: BP 132/79; PULSE 69; RESP 15; O2SAT 96
== END 2025-01-10 16:45 | disposition home or self-care (01) ==
PROVIDERS: Emergency Provider Emergency Medicine; PCP Family Medicine Geriatric Medicine
DX: R55 Syncope and collapse (principal); Z79.82 Long term (current) use of aspirin; Z79.84 Long term (current) use of oral hypoglycemic drugs; Z87.891 Personal history of nicotine dependence; J44.9 Chronic obstructive pulmonary disease, unspecified; E78.5 Hyperlipidemia, unspecified; I10 Essential (primary) hypertension; E13.9 Other specified diabetes mellitus without complications
CPT/HCPCS: 36415; 71045; 80053; 83605; 83880; 84484; 85025; 99285

== ENCOUNTER 2025-01-25 06:55 | Outpatient (CLI) | payer OTHER, SELFPAY ==
--- NOTE | 2025-01-25 07:00 | USCV_ITS ---
Fuentes Gambino Age: 69 Gender: M : 1955 Exam Date: 01/25/2025 07:13 Ordering Phys: Placido Aguayo M.D ([email or web address]) Technologist: Kobe Washington Exam Location: [facility] Indication: chest pain, sob BP: 120 / 70 HR: 63 Rhythm: Sinus Technical Quality: Adequate MEASUREMENTS (Male / Female) Normal Values 2D ECHO LV Diastolic Diameter PLAX 4.1 cm 4.2 - 5.9 / 3.9 - 5.3 cm IVS Diastolic Thickness 1.3 cm 0.6 - 1.0 / 0.6 - 0.9 cm IVS Systolic Thickness 2.0 cm LVPW Diastolic Thickness 1.4 cm 0.6 - 1.0 / 0.6 - 0.9 cm LVPW Systolic Thickness 1.6 cm LVOT Diameter 2.0 cm LV Ejection Fraction 2D Teich 70.5 % LV Ejection Fraction MOD 4C 62.4 % LV Ejection Fraction MOD 2C 70.1 % LV Ejection Fraction 2C AL 70.7 % LA Diameter 3.9 cm RA Systolic Volume 4C AL 48.0 ml RA Systolic Volume 4C MOD 44.6 ml LA Sys Volume AL 56.0 cm cubed LA Sys Volume Index AL 23.0 cm cubed/m squared Aorta at Sinotubular Diameter 2.8 cm IVC Diameter 1.7 cm M-MODE LA Ao Ratio MM 1.0 AV Cusp Separation MM 1.8 cm DOPPLER AV Peak Velocity 261.3 cm/s LVOT Peak Velocity 113.0 cm/s AV Area Cont Eq vti 2.9 cm squared AV Area Cont Eq pk 1.4 cm squared MV Peak Velocity 77.0 cm/s MV Area PHT 3.5 cm squared Mitral E to A Ratio 0.8 TR Peak Velocity 246.0 cm/s TR Peak Gradient 24.2 mmHg TR Mean Velocity 191.0 cm/s TR Mean Gradient 15.5 mmHg TR Velocity Time Integral 55.3 cm PV Peak Velocity 130.0 cm/s FINDINGS Left Ventricle Normal left ventricular size, systolic function and wall thickness, with no regional wall motion abnormalities. Left ventricular ejection fraction is estimated at 60 %. Grade I/IV diastolic dysfunction (abnormal relaxation filling pattern), normal to mildly elevated filling pressures. Right Ventricle Normal right ventricular size and systolic function. Right Atrium Normal right atrial size. Left Atrium Normal left atrial size. IA Septum Normal appearance of the interatrial septum. Mitral Valve Mild mitral annular calcification. No mitral valve stenosis. Mild-moderate mitral valve regurgitation. Aortic Valve Moderate aortic valve calcification. No aortic valve stenosis. Trace aortic valve regurgitation. Tricuspid Valve [id number] tricuspid valve regurgitation. Pulmonic Valve Normal pulmonic valve structure. No pulmonic valve stenosis or regurgitation. Pericardium No pericardial effusion. Aorta Normal diameter of the aortic root and ascending thoracic aorta. IVC Normal IVC diameter. CONCLUSIONS Normal left ventricular size, systolic function and wall thickness, with no regional wall motion abnormalities. Left ventricular ejection fraction is estimated at 60 %. Grade I/IV diastolic dysfunction (abnormal relaxation filling pattern), normal to mildly elevated filling pressures. Moderate aortic valve calcification. No aortic valve stenosis. Trace aortic valve regurgitation. Mild mitral annular calcification. No mitral valve stenosis. Mild-moderate mitral valve regurgitation. [id number] tricuspid valve regurgitation. There is no pericardial effusion. Right atrial pressure is around 5 mm of mercury. Nitesh Ross MD (Electronically Signed) Final Date: 04 February 2025 19:55 S
== END 2025-01-25 06:56 | disposition home or self-care (01) ==
LOC: RAD 06:55
PROVIDERS: PCP Family Medicine Geriatric Medicine; Visit Provider Internal Medicine
DX: R07.9 Chest pain, unspecified (principal); R06.02 Shortness of breath; R93.1 Abnormal findings on diagnostic imaging of heart and coronary circulation; I34.81 Nonrheumatic mitral (valve) annulus calcification; I34.0 Nonrheumatic mitral (valve) insufficiency; I35.8 Other nonrheumatic aortic valve disorders; I07.1 Rheumatic tricuspid insufficiency
CPT/HCPCS: 93306